=== PATIENT | male | born 1985 | race Hispanic/Latino ===

== ENCOUNTER 2016-07-13 11:03 | Emergency (ER) | payer OTHER ==
[~2016-07-13] VITALS: Ht 175.3 cm; Wt 139.3 kg
[~2016-07-13 11:03] MED LIST: ONFI10 MG PO; PERCOCET 325 MG1 TA2 PO; TEGRETOL 200MG200 MG PO; ZONEGRAN 100MG100 MG PO
--- NOTE | 2016-07-13 11:56 | RADIOLOGY REPORT ---
EXAMINATION: XR HAND, LEFT CLINICAL INFORMATION: Pain. Rule out fracture. COMPARISON: None TECHNIQUE: AP, lateral, and oblique views of the left hand. FINDINGS: There is a comminuted fracture of the first metacarpal with a longitudinal component extending from the lateral cortex of the metacarpal base to the lateral cortex to the distal articular surface. An oblique component is present through the distal shaft. No definite articular surface involvement is identified. Fragments are minimally displaced (2 mm). Surrounding soft tissues are swollen. No additional fractures are identified. Joint spaces appear well-preserved. IMPRESSION: Comminuted, minimally displaced first metacarpal fracture without appreciable articular surface involvement.
[2016-07-13] MEDS ORDERED: HYDROCODON-ACE1 EAC2 PO (12:34)
--- NOTE | 2016-07-13 12:35 | ED HAND/WRIST INJURY COMPLAINT ---
History of Present Illness General Chief Complaint: Hand or Wrist Injury Stated Complaint: L HAND INJURY, ?SWOLLEN Source: patient Exam Limitations: no limitations Vital Signs & Intake/Output Vital Signs & Intake/Output Vital Signs Date Time Temp Pulse Resp B/P Pulse O2 O2 Flow FiO2 Ox Delivery Rate 07/13 1250 98.0 88 20 106/60 98 Room Air 07/13 1108 97.2 88 20 100/61 98 Room Air Allergies Coded Allergies: NO KNOWN ALLERGIES (08/11/11) Reconcile Medications Carbamazapine (Tegretol 200MG Tab) 100 MG TAB.CHEW 600 MG PO BID SEIZURES ( Reported) Clobazam (Onfi) 10 MG TABLET 30 MG PO BID SEIZURES (Reported) Hydrocodone/Acetaminophen (Hydrocodon-Acetaminophen 5-325) 5 MG-325 MG TABLET 1-2 TAB PO Q4-6 PRN PRN pain OXYCODONE HCL/ACETAMINOPHEN (Percocet 5-325 MG Tablet) 325 MG/5 MG TAB 1 TAB PO Q4-6 PRN PRN PAIN Zonisamide (Zonegran 100MG) 100 MG CAPSULE 400 MG PO QPM SEIZURES (Reported) Triage Note: PT STATES HE WAS MOVING A TABLE YESTERDAY AND HIS RIGHT THUMB GOT BENT BACKWARDS. HAND IS VERY SWOLLEN. 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 yes Occurred: yesterday Duration: day(s): (1), constant, continues in ED Timing: recent history Injury Environment: home Severity: moderate, severe Pain/Injury Location: Left: Hand. No Modifying Factors: none HPI: 31-year-old male comes into the emergency room for further evaluation of left hand pain. Patient reports that he was lifting furniture yesterday when he injured his hand. Some swelling and pain since then. Denies any other trauma. Denies injury anywhere else. Pain is located in the first digit on his left hand. (JOE CHADWICK) Past History Travel History Traveled to [place] past 21 day No Medical History Any Pertinent Medical History? see below for history Neurological: seizure Respiratory: asthma Tetanus Vaccine: 08/11/11 Surgical History Surgical History: non-contributory Psychosocial History What is your primary language Chilean Tobacco Use: Current Daily Use Daily Tobacco Use Amount/Type: => 5 Cigarettes daily ETOH Use: occasional use Illicit Drug Use: denies illicit drug use Family History Hx Contributory? No (JOE CHADWICK) Review of Systems Review of Systems Constitutional: Reports: no symptoms. EENTM: Reports: no symptoms. Respiratory: Reports: no symptoms. Cardiovascular: Reports: no symptoms. GI: Reports: no symptoms. Genitourinary: Reports: no symptoms. Musculoskeletal: Reports: see HPI. Skin: Reports: no symptoms. Neurological/Psychological: Reports: no symptoms. Hematologic/Endocrine: Reports: no symptoms. Immunologic/Allergic: Reports: no symptoms. All Other Systems: Reviewed and Negative (JOE CHADWICK) Physical Exam Physical Exam General Appearance: well developed/nourished, mild distress Head: atraumatic Eyes: Bilateral: normal appearance. Ears, Nose, Throat: normal ENT inspection, hearing grossly normal Neck: normal inspection Cardiovascular/Respiratory: no respiratory distress Back: normal inspection Shoulder Left: normal inspection Elbow Left: normal inspection Hand Left: ecchymosis, swelling, tender, 1st finger Hand Right: normal inspection Neurologic/Tendon: normal sensation, normal motor functions, responds to pain Skin: intact, normal color, warm/dry Lymphatic: no anterior cervical norma (JOE CHADWICK) Progress Differential Diagnosis: dislocation, felon, fracture, gout, paronychia, septic arthritis, sprain, tenosynovitis Plan of Care: 07/13/2016 1:46:23 PM Patient clinically looks well. He already sees [facility]. They will contact them for follow-up. Patient put in a thumb spica splint. Diagnostic Imaging: Viewed by Me: Radiology Read. Discussed w/RAD: Radiology Read. Radiology Impression: EXAM TYPE: RAD - XRY-HAND, LEFT EXAMINATION: XR HAND, LEFT CLINICAL INFORMATION: Pain. Rule out fracture. COMPARISON: None TECHNIQUE: AP, lateral, and oblique views of the left hand. FINDINGS: There is a comminuted fracture of the first metacarpal with a longitudinal component extending from the lateral cortex of the metacarpal base to the lateral cortex to the distal articular surface. An oblique component is present through the distal shaft. No definite articular surface involvement is identified. Fragments are minimally displaced (2 mm). Surrounding soft tissues are swollen. No additional fractures are identified. Joint spaces appear well-preserved. IMPRESSION: Comminuted, minimally displaced first metacarpal fracture without appreciable articular surface involvement. DICTATED BY: AMBER SEQUEIRA MD DATE/TIME DICTATED:07/13/161150 COURT MONITOR:HAYDEN (JOE CHADWICK) Departure Departure Disposition: HOME OR SELF CARE Condition: Stable Clinical Impression Primary Impression: Fracture, metacarpal shaft Referrals: THOMAS MCWILLIAMS MD (PCP/Family) Additional Instructions: Take Vicodin for pain. Follow-up with orthopedic doctor. Stay in splint until then. Return if any concerns worsening symptoms. Please go over all results of today's visit with your primary care doctor. Contact your primary care doctor to let them know you were here in the emergency room. There may be nonspecific findings which may not be related to your visit today here in the emergency room but may require further evaluation and chronic monitoring by your primary care doctor. If you had a laceration today the chance of foreign body always remains. You should follow-up with your primary care doctor for recheck in 3-5 days for a wound check. If you had an x-ray done there is a chance that a fracture could have been missed on initial read and you should follow-up with your primary care doctor for repeat x-rays if symptoms persist. If your blood pressure was elevated here in the emergency room please have rechecked by her primary care doctor within the next 48 hours by your primary care doctor. If you were prescribed a narcotic here in the emergency room or any type of controlled substances you're not allowed to drive while taking this medication or operate any type of heavy machinery. Narcotics can make you feel lightheaded dizziness nausea and can cause constipation. 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 Thank you for choosing [facility] emergency room. Please return to the emergency room immediately if you have any other concerns worsening of symptoms. Departure Forms: Customer Survey General Discharge Information Prescriptions: Current Visit Scripts Hydrocodone/Acetaminophen (Hydrocodon-Acetaminophen 5-325) 1-2 TAB PO Q4-6 PRN PRN pain #15 TAB (JOE CHADWICK) PA/ONCOLOGY NAVIGATOR Co-Sign Statement Statement: ED Attending supervision documentation- [] I saw and evaluated the patient. I have also reviewed all the pertinent lab results and diagnostic results. I agree with the findings and the plan of care as documented in the PA's/ONCOLOGY NAVIGATOR's documentation. x I have reviewed the ED Record and agree with the PA's/ONCOLOGY NAVIGATOR's documentation. [] Additions or exceptions (if any) to the PAs/ONCOLOGY NAVIGATOR's note and plan are summarized below: [] (CHESTER TAVAREZ,ROSA) Procedures Splinting Location: Left thumb Manual Alignment Performed: No Hand-Made Type: orthoglass Splint Applied By: splint applied by me Pre-Proc Neuro Vasc Exam: normal Post-Proc Neuro Vasc Exam: normal (JOE CHADWICK)
[2016-07-13 12:50] VITALS: BP 106/60
== END 2016-07-13 12:51 ==
LOC: ERH 11:03
DX: S62.242A Displaced fracture of shaft of first metacarpal bone, left hand, initial encounter for closed fracture (principal); X58.XXXA Exposure to other specified factors, initial encounter; Y93.89 Activity, other specified; Y92.009 Unspecified place in unspecified non-institutional (private) residence as the place of occurrence of the external cause
CPT/HCPCS: 73130-LT

== ENCOUNTER 2017-06-22 12:27 | Emergency (ER) | payer OTHER ==
[~2017-06-22] VITALS: Ht 175.3 cm; Wt 131.1 kg
[~2017-06-22 12:27] MED LIST changes: +HYDROCODON-ACE1 EAC2 PO
--- NOTE | 2017-06-22 13:32 | RADIOLOGY REPORT ---
EXAMINATION: XR FOOT, RIGHT CLINICAL INFORMATION: Pain of right great toe status post injury COMPARISON: None TECHNIQUE: AP, lateral, and oblique views of the right foot. FINDINGS: There is a nondisplaced intra-articular fracture at the medial base of the first digit proximal phalanx. Soft tissue swelling is present. Joint spaces are maintained. Tiny plantar heel spur. IMPRESSION: Nondisplaced intra-articular fracture at the medial base of the first digit proximal phalanx.
--- NOTE | 2017-06-22 16:38 | ED ANKLE/FOOT INJURY COMPLAINT ---
History of Present Illness General Chief Complaint: Foot or Ankle Injury Stated Complaint: R BIG TOE INJURY Source: patient, family Exam Limitations: no limitations Vital Signs & Intake/Output Vital Signs & Intake/Output Vital Signs Date Time Temp Pulse Resp B/P B/P Pulse O2 O2 Flow FiO2 Mean Ox Delivery Rate 06/22 1253 96.7 93 18 113/67 95 Room Air Allergies Coded Allergies: No Known Allergies (02/28/17) Reconcile Medications Carbamazapine (Tegretol 200MG Tab) 100 MG TAB.CHEW 600 MG PO BID SEIZURES ( Reported) Clobazam (Onfi) 10 MG TABLET 30 MG PO BID SEIZURES (Reported) Hydrocodone/Acetaminophen (Hydrocodon-Acetaminophen 5-325) 5 MG-325 MG TABLET 1-2 TAB PO Q4-6 PRN PRN pain Meloxicam (Mobic) 15 MG TABLET 1 TAB PO DAILY PRN pain OXYCODONE HCL/ACETAMINOPHEN (Percocet 5-325 MG Tablet) 325 MG/5 MG TAB 1 TAB PO Q4-6 PRN PRN PAIN Zonisamide (Zonegran 100MG) 100 MG CAPSULE 400 MG PO QPM SEIZURES (Reported) Triage Note: PT TO ER C/C RIGHT GREAT TOE PAIN X 1 DAY S/P STUBBING IT ON SHOWER. PAIN 11/18, DECLINED PAIN INTERVENTION IN TRIAGE Triage Nurses Notes Reviewed? yes Occurred: YESTERDAY Duration: day(s): Timing: recent history Severity: moderate Pain/Injury Location: Right: 1st toe. Method of Injury: stubbed HPI: 32yo male with hx of epilepsy presents to ED complaining of injury to R foot. Patient has seizure last night and believes he kicked the sink in the bathroom. Patient has intermittent seizures in which he ambulates without being aware of his surroundings, he seen a neurologist for the seizures, he will be having brain surgery next month. Patient was with his father who is very active and his healthcare. Father states that the patient did not fall down or hit his head recently. Patient states that he has pain and right great toe when he walks. He has not noticed swelling, bleeding, bruising, numbness, tingling. Past History Travel History Traveled to [place] past 21 day No Medical History Any Pertinent Medical History? see below for history Neurological: seizure EENT: NONE Cardiovascular: NONE Respiratory: asthma Gastrointestinal: NONE Hepatic: NONE Renal: NONE Musculoskeletal: NONE Psychiatric: NONE Endocrine: NONE Blood Disorders: NONE Cancer(s): NONE CAMP BOSS/Reproductive: NONE Tetanus Vaccine: 08/11/11 Surgical History Surgical History: non-contributory Psychosocial History What is your primary language German Tobacco Use: Current Daily Use Daily Tobacco Use Amount/Type: =< 4 Cigarettes daily Family History Hx Contributory? No Review of Systems Review of Systems Constitutional: Reports: no symptoms. EENTM: Reports: no symptoms. Respiratory: Reports: no symptoms. Cardiovascular: Reports: no symptoms. GI: Reports: no symptoms. Genitourinary: Reports: no symptoms. Musculoskeletal: Reports: see HPI. Skin: Reports: no symptoms. Neurological/Psychological: Reports: see HPI. Hematologic/Endocrine: Reports: no symptoms. Immunologic/Allergic: Reports: no symptoms. All Other Systems: Reviewed and Negative Physical Exam Physical Exam General Appearance: well developed/nourished, no apparent distress, alert, awake Head: atraumatic, normal appearance, NONTENDER, NO EVIDENCE OF INJURY Eyes: Bilateral: normal appearance, PERRL, EOMI. Ears, Nose, Throat: hearing grossly normal Neck: normal inspection, supple, full range of motion, no midline tenderness Cardiovascular/Respiratory: normal breath sounds, normal peripheral pulses, regular rate/rhythm, no respiratory distress Back: normal inspection, normal range of motion, no vertebral tenderness Leg/Knee/Thigh Left: normal range of motion, normal inspection Leg/Knee/Thigh Right: normal range of motion, normal inspection Ankle Left: normal inspection, normal range of motion Ankle Right: normal inspection, normal range of motion, NONTENDER Foot Left: normal inspection, normal range of motion Foot Right: normal inspection, normal range of motion, TENDERNESS TO LATERAL ASPECT OF 1ST MTP Neuro/Vascular: normal motor function, normal sensation Tendon: normal tendon function Psychiatric: awake, alert, oriented x 3 Skin: intact, normal color, warm/dry Progress Differential Diagnosis: gout, fracture, sprain, contusion Plan of Care: Patient and father deny head trauma or head strike during his recent seizure- like activity. They're actively seeing neurologist regarding his persistent seizures, seizure-like activity is not abnormal for this patient. Patient has fracture to MTP joint of his right great toe. Patient placed in posterior leg splint with double Ortho-Glass to plantar aspect of foot to allow for slight weightbearing. Patient to follow-up with Dr. Morfin this week. Patient has intact distal pulses, normal sensation in skin color, no significant swelling, no bleeding. The patient and his father agree with the plan of care. The patient was discussed with Dr. Mujica who agrees with this plan. Diagnostic Imaging: Viewed by Me: Radiology Read. Discussed w/RAD: Radiology Read. Radiology Impression: PATIENT: LIZETH SALINAS PRESENT AGE: 32 PATIENT ACCOUNT NO: [id number] : 86 LOCATION: [facility] ORDERING PHYSICIAN: Juan C Motley DO (TBS) SERVICE DATE: 06/22/17 EXAM TYPE: RAD - XRY-FOOT COMPLETE, R EXAMINATION: XR FOOT, RIGHT CLINICAL INFORMATION: Pain of right great toe status post injury COMPARISON: None TECHNIQUE: AP, lateral, and oblique views of the right foot. FINDINGS: There is a nondisplaced intra- articular fracture at the medial base of the first digit proximal phalanx. Soft tissue swelling is present. Joint spaces are maintained. Tiny plantar heel spur. IMPRESSION: Nondisplaced intra-articular fracture at the medial base of the first digit proximal phalanx. DICTATED BY: Everardo Smith MD DATE/TIME DICTATED:06/22/171326 TROUBLE CLERK:HAYDEN DATE/TIME TRANSCRIBED:1326 CONFIDENTIAL, DO NOT COPY WITHOUT APPROPRIATE AUTHORIZATION. < Electronically signed in Other Vendor System> SIGNED BY: Everardo Smith MD 06/22/17 1332 Departure Departure Disposition: HOME OR SELF CARE Condition: Stable Clinical Impression Primary Impression: Fracture of proximal phalanx of toe of right foot Referrals: Fred TAVAREZ,Lakhwinder Tafoya (PCP/Family) Additional Instructions: Follow-up with orthopedic doctor, call the office tomorrow to make an appointment. Wear splint until you follow up with the doctor. After 2-3 days if you are not experiencing significant pain you may bear weight with the splint on. Take meloxicam as prescribed as needed for pain. He may take this medication with Tylenol. Use crutches for walking for the next 2-3 days. Please note that there might be incidental findings in your evaluation that are unrelated to the current emergency department visit. Please notify your primary care doctor about this emergency department visit in order to obtain and review all of the testing performed so that these incidental findings can be monitored as needed. If you had an x-ray performed, please understand that some fractures may not be seen on the initial set of x-rays. If your symptoms persist you might need a repeat set of x-rays to check for such a fracture. If you had a laceration evaluated, please understand that foreign bodies such as glass or wood may not be visible to the naked eye or on plain x-rays. If the wound becomes red, swollen, increasingly more painful or if there is any drainage from the wound, please have it reevaluated by a physician for the possibility of a retained foreign body. If you're unable to follow up as outlined in the discharge instructions please return to the emergency department. Thank you for choosing the [facility] Emergency Department for your care. It was a pleasure to serve you today. Departure Forms: Customer Survey General Discharge Information Prescriptions: Current Visit Scripts Meloxicam (Mobic) 1 TAB PO DAILY PRN pain #15 TAB Procedures Splinting Location: RIGHT FOOT Manual Alignment Performed: No Hand-Made Type: orthoglass Splint: posterior walking Splint Applied By: splint applied by me Pre-Proc Neuro Vasc Exam: normal Post-Proc Neuro Vasc Exam: normal Progress: Patient tolerated splinting well.
[2017-06-22] MEDS ORDERED: MOBIC15 M1 PO (17:25)
[2017-06-22 17:29] VITALS: BP 100/52
== END 2017-06-22 17:29 ==
LOC: ERH 12:27
DX: S92.411A Displaced fracture of proximal phalanx of right great toe, initial encounter for closed fracture (principal); W23.1XXA Caught, crushed, jammed, or pinched between stationary objects, initial encounter; Y92.9 Unspecified place or not applicable; Y93.9 Activity, unspecified
CPT/HCPCS: 73630-RT

== ENCOUNTER 2017-07-22 13:56 | Inpatient (IN) | payer OTHER ==
[~2017-07-22] VITALS: Ht 172.7 cm; Wt 138.6 kg
[~2017-07-22 13:56] MED LIST changes: +MOBIC15 M1 PO; +ONFI10 M1 PO; -ONFI10 MG PO; -ZONEGRAN 100MG100 MG PO; +ZONEGRAN100 M1 PO
--- NOTE | 2017-07-22 15:14 | ED UPPER/LOWER EXTREMITY COMPL ---
History of Present Illness General Chief Complaint: General Adult Stated Complaint: SIB VIC [place] FOR BLOOD CLOT IN R LEG Source: patient, family (father), old records Exam Limitations: no limitations Vital Signs & Intake/Output Vital Signs & Intake/Output Vital Signs Date Time Temp Pulse Resp B/P B/P Pulse O2 O2 Flow FiO2 Mean Ox Delivery Rate 07/22 1846 97.6 83 18 102/62 96 Room Air Room Air 07/22 1748 97.5 81 18 109/70 96 Room Air 07/22 1520 97.9 87 15 117/74 96 Room Air Room Air Allergies Coded Allergies: No Known Allergies (07/22/17) Reconcile Medications Carbamazepine 300 MG CPMP.12HR 2 CAP PO BID SEIZURES (Reported) Carbamazepine 200 MG CPMP.12HR 1 CAP PO QPM SEIZURES (Reported) Cholecalciferol (Vitamin D3) (Vitamin D3) 2,000 UNIT TABLET 1 TAB PO DAILY VITAMIN SUPPORT (Reported) Clobazam (ONFI) 10 MG TABLET 3 TAB PO BID SEIZURES (Reported) Oxycodone HCl 5 MG TABLET 1 TAB PO BIDP PRN PAIN (Reported) Zonisamide (Zonegran) 100 MG CAPSULE 6 CAP PO QPM SEIZURES (Reported) Triage Nurses Notes Reviewed? yes Onset: Abrupt Duration: day(s): (1), constant Timing: recent history Severity: moderate Severity Numbers: 6 Pain/Injury Location: Right: Leg. Method of Injury: unknown No Modifying Factors: none Associated Symptoms: denies HPI: 32-year-old male history of epilepsy status post electrode transplant brain surgery on July 12 presents to the ER. Outpatient ultrasound performed today that showed a right lower extremity DVT. He states that he's had right calf pain for the past few days. No chest pain or shortness of breath. No abdominal pain nausea vomiting fever chills. He denies any left leg pain. He was receiving heparin subcutaneous while in the hospital at [facility] after his surgery he was discharged 2 days ago. (Yvette ALFARO,Nikolas) Past History Travel History Traveled to [place] past 21 day No Medical History Any Pertinent Medical History? 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 No (Nikolas Johnson) Review of Systems Review of Systems Constitutional: Reports: see HPI. Comments Review of systems: See HPI, All other systems negative. Constitutional, no chills no fever, HEENT: no sore throat no congestion Cardiovascular: No chest pain , Skin: no rashes, no change in skin Respiratory: No dyspnea no cough no sputum no hemoptysis GI: No nausea no vomiting, no diarrhea, no bloating/constipation : No dysuria No hematuria, no frequency Muscle skeletal: No joint pain, no back pain, no neck pain, Neurologic: , no headache Heme/endocrine: No bruising no bleeding Immunology: No lymphadenopathy (Nikolas Johnson) Physical Exam Physical Exam General Appearance: well developed/nourished, no apparent distress, alert Comments: Well-developed well-nourished person in no acute distress HEENT: Normal EENT exam; PERRL, EOMI, no nystagmus. HEAD is atraumatic. moist mucous membranes. Neck: Supple, normal range of motion without pain or tenderness Back: Full range of motion Cardiovascular: Regular rate and rhythms no murmurs rub Respiratory: Chest nontender.There were no bony deformities, no asymmetry. No respiratory distress. Patient speaking in full complete sentences. Breath sounds clear to auscultation bilaterally: NO W/R/R Abdomen: Soft, obese, nontender Extremity: (+) r homans sign , no ecchymosis, no edema, Right lower extremity +2 + DP pulse, there is no ecchymosis the extremities warm sensation is within normal limits, No edema, full range of motion of extremities, normal and equal pulses bilaterally, 5 out of 5 strength noted to bilateral upper and lower extremities Neuro: Alert oriented x3, motor sensory normal, There were no obvious focal neurologic abnormalities. Skin: No appreciable rash on exposed skin, skin is warm and dry. Psych: Mood and affect is normal, memory and judgment is normal. (Nikolas Johnson) Progress Differential Diagnosis: cellulitis, compartment syndrome, contusion, dislocation , DVT, pe Plan of Care: Orders Procedure Date/time Status Heart Healthy Diet 07/23 B Active PROTHROMBIN TIME 07/23 599 Active CBC WITHOUT DIFFERENTIAL 07/23 599 Active BASIC ELECTROLYTES PLUS BUN&CR 04/14 0600 Active Regular Diet 07/22 D Complete Weight 07/228 Active Vital Signs 07/22 1917 Active Teach/Educate 07/22 1917 Active Pain Treatment and Response 07/22 1917 Active Nutritional Intake, Monitor 07/22 1917 Active Isolation 07/22 1917 Active Intake & Output 07/22 1917 Active Patient Care Conference 07/22 1917 Active Activity/Ambulation 07/22 1917 Active Pathway - chart 07/22 1715 Active Code Status 07/22 1715 Active Patient Data 07/22 1655 Active ED Holding Orders 07/22 1651 Active Admit to inpatient 07/22 1651 Active Vital Signs 07/22 1651 Active Code Status 07/22 1651 Complete Intake & Output 07/22 1631 Active EKG 07/22 1526 Active PARTIAL THROMBOPLASTIN TIME 07/22 1500 Complete PROTHROMBIN TIME 07/22 1500 Complete COMPREHENSIVE METABOLIC PANEL 07/22 1500 Complete CBC WITHOUT DIFFERENTIAL 07/22 1500 Complete House Staff 07/22 UNK Active Vital Signs 07/22 UNK Complete Seizure Precautions 07/22 UNK Active [place] Coma Scale 07/22 UNK Active Current Medications Sig/Regina Start time Last Medication Dose Stop Time Status Admin Carbamazepine 600 MG DAILY 07/23 0900 AC (Carbatrol Extended Release) Cholecalciferol 2,000 IU DAILY 07/23 0900 AC (Vitamin D) Carbamazepine 800 MG AT BEDTIME 07/22 2100 AC (Carbatrol Extended Release) Oxycodone HCl 5 MG BID PRN 07/22 2100 AC (Roxicodone) Non-Formulary 0 SEE ADMIN CRITERIA 07/22 1830 UNVr Medication (NON FORMULARY) Heparin Sodium/ 25,000 UNIT Q24H 07/22 1545 AC 07/22 Dextrose 1620 (Heparin) Dextrose/Water 500 ML (D5W) Laboratory Tests 07/22/17 1510: Anion Gap 16, Estimated GFR > 60, BUN/Creatinine Ratio 15.0, Glucose 102 H, Calcium 9.3, Total Bilirubin 0.6, AST 23, ALT 42, Alkaline Phosphatase 84, Total Protein 7.7, Albumin 4.5, Globulin 3.2, Albumin/Globulin Ratio 1.4, PT 12.5, INR 1.15, APTT 32, CBC w Diff NO MAN DIFF REQ, RBC 4.97, MCV 94.4 H, MCH 31.8 H, MCHC 33.7, RDW 12.0, MPV 6.7 L, Gran % 65.4, Lymphocytes % 19.0 L, Monocytes % 12.2 H, Eosinophils % 3.2, Basophils % 0.2, Absolute Granulocytes 8.2 H, Absolute Lymphocytes 2.4, Absolute Monocytes 1.5 H, Absolute Eosinophils 0.4, Absolute Basophils 0 Ravindra has no shortness of breath no chest pain no other complaints other than right calf pain. i spoke with dr palacios- cell [phone]- he advised was high risk going into the surgery. His weight and smoking history and he was noncompliant with using compression sleeves after the surgery, he advised however that the patient can be anticoag- he asked however that no bolus of heparin be given he advised and start with slow gtt of heparin prior to bridge to coumadin. case d/w dr motley, call placed to vascular and hospitalisist I discussed with the patient and his father plan of care and my discussion with Dr. Palacios [id number] case dw vascular vascular is advised leg elevation and Bruce wrap to the leg agrees with neurosurgeon recommendations Case discussed with Dr. Katz will admit Diagnostic Imaging: Viewed by Me: Ultrasound. Discussed w/RAD: Ultrasound. Radiology Impression: PATIENT: LIZETH SALINAS PRESENT AGE: 32 PATIENT ACCOUNT NO: [id number] : 86 [facility] ORDERING PHYSICIAN: Harpal Rowan MD SERVICE DATE: 07/22/17 EXAM TYPE: US - US- UNILATERAL VENOUS DOPPLER EXAMINATION: US TRIPLEX LOWER EXTREMITY, RIGHT CLINICAL INFORMATION: Pain in calf on the right side. History of recent brain surgery. COMPARISON: None. TECHNIQUE: Color-flow triplex imaging with spectral analysis and compression Doppler were performed on the right lower extremity. FINDINGS: The study demonstrates noncompressible thrombus in the right calf extending to the right lower femoral vein, consistent with a DVT. The proximal femoral vein has normal flow and compressibility. There are no focal fluid collections. IMPRESSION: 1. The study demonstrates noncompressible deep vein thrombosis in the right calf extending to the right lower femoral vein. 2. There are no focal fluid collections. 3. This critical result was discussed with Dr Diaz by telephone on 07/22/2017 at 1:30 PM and it was ascertained that the content and urgency of the report was understood at the time of direct communication. DICTATED BY: Clint Rosario MD DATE/TIME DICTATED:07/22/171332 CRUISE COORDINATOR:HAYDEN DATE/TIME TRANSCRIBED:07/22/171332 CONFIDENTIAL, DO NOT COPY WITHOUT APPROPRIATE AUTHORIZATION. <Electronically signed in Other Vendor System> SIGNED BY: Clint Rosario MD 07/22/17 1423 Initial ED EKG: normal intervals, normal p-waves, normal QRS complex, normal sinus rhythm (Nikolas Johnson) Departure Departure Time of Disposition: 1541 Disposition: STILL A PATIENT Condition: Stable Clinical Impression Primary Impression: DVT (deep venous thrombosis) Referrals: Lakhwinder Ibarra MD (PCP/Family) Departure Forms: Customer Survey General Discharge Information Admission Note Spoke With: Agus Katz MD Documentation of Exam: Documentation of any treatments & extenuating circumstances including Concerns Regarding Discharge (functional status, medication knowledge or non-compliance, living conditions, etc.) that warrant an admission rather than observation: Neuro checks IV anticoagulation vascular consult trend labs premature discharge would BE medically harmful (Nikolas Johnson) PA/COUNSELING CASE MANAGER Co-Sign Statement Statement: ED Attending supervision documentation- [X] I saw and evaluated the patient. I have also reviewed all the pertinent lab results and diagnostic results. I agree with the findings and the plan of care as documented in the PA's/COUNSELING CASE MANAGER's documentation. [] I have reviewed the ED Record and agree with the PA's/COUNSELING CASE MANAGER's documentation. [] Additions or exceptions (if any) to the PAs/COUNSELING CASE MANAGER's note and plan are summarized below: [] I saw and evaluated the patient. He has swelling to the right lower extremity (Juan C Motley DO) I saw and evaluated the patient. He has swelling to the right lower extremity (Juan C Motley DO)
[2017-07-22 15:26] LABS: ABSOLUTE BASOPHIL COUNT 0 /CUMM (0.0-0.2); ABSOLUTE EOSINOPHIL COUNT 0.4 /CUMM (0.0-0.7); ABSOLUTE GRANULOCYTE CT 8.2 /CUMM (1.4-6.5); ABSOLUTE LYMPH COUNT 2.4 /CUMM (1.2-3.4); ABSOLUTE MONOCYTE COUNT 1.5 /CUMM (0.10-0.60); BASOPHIL % 0.2 % (0.0-2.0); EOSINOPHIL % 3.2 % (0-5); GRANULOCYTE % 65.4 % (42.2-75.2); HEMATOCRIT 46.9 % (42-52); MEAN CORPUSCULAR HGB 31.8 PG (27.0-31.0); MEAN CORPUSCULAR HGB CONC 33.7 G/DL (33.0-37.0); MEAN CORPUSCULAR VOLUME 94.4 FL (80.0-94.0); MEAN PLATELET VOLUME 6.7 FL (7.4-10.4); PLATELET COUNT 238 /CUMM (130-400); RED BLOOD CELL CT 4.97 /CUMM (4.70-6.10); WHITE BLOOD CELL COUNT 12.6 /CUMM (4.8-10.8)
[2017-07-22 15:27] LABS: PT 12.5 SEC (9.4-12.5); PTT 32 SEC (25-37)
[2017-07-22] MEDS ORDERED: CARBAMAZEPINE300 M1 PO (15:41)
[2017-07-22] MEDS ORDERED: VITAMIN D32000 UNI1 PO (15:42)
[2017-07-22] MEDS ORDERED: CARBAMAZEPINE200 M6 PO (15:43)
[2017-07-22] MEDS ORDERED: OXYCODONE HCL5 M1 PO (15:43)
--- NOTE | 2017-07-22 16:30 | History & Physical ---
Vidal Arthur MD,[facility] 07/22/17 1629: General Information and HPI MD Statement: I have seen and personally examined LIZETH SALINAS and documented this H&P. The patient is a 32 year old M who presented with a patient stated chief complaint of [BLOOD CLOT IN LEG]. Source of Information: patient, family History of Present Illness: Patient is 32 y M with PMH of seizure s/p electrode transplant brain surgery was sent to ED for evaluation and treatment of blood clots in leg. Patients father was present at the bedside helping in history taking. Patient noted that he had brain surgery on at [facility] (by Dr Palacios). He was discharged on July 20 from hospital and reported to be in bed most of the times. He noted to have pain in the right leg yesterday. He visited his PCP this morning was referred for an outpatient ultrasound. He was told he had blood clots in leg and he came to ED. He reported no chest pain, SOB, cough or palpitation. patient lives with his father, is prety independant in daily life activities. Dr Palacios was contacted with ED, recommended no bolus of heparin, but we can administer heparin drip as bridging for wafarin. Allergies/Medications Allergies: Coded Allergies: No Known Allergies (07/22/17) Home Med list Carbamazepine 300 MG CPMP.12HR 2 CAP PO BID SEIZURES (Reported) Carbamazepine 200 MG CPMP.12HR 1 CAP PO QPM SEIZURES (Reported) Cholecalciferol (Vitamin D3) (Vitamin D3) 2,000 UNIT TABLET 1 TAB PO DAILY VITAMIN SUPPORT (Reported) Clobazam (ONFI) 10 MG TABLET 3 TAB PO BID SEIZURES (Reported) Oxycodone HCl 5 MG TABLET 1 TAB PO BIDP PRN PAIN (Reported) Zonisamide (Zonegran) 100 MG CAPSULE 6 CAP PO QPM SEIZURES (Reported) Past History Travel History Traveled to [place] past 21 day No Medical History Neurological: seizure EENT: NONE Cardiovascular: NONE Respiratory: asthma Gastrointestinal: NONE Hepatic: NONE Renal: NONE Musculoskeletal: NONE Psychiatric: NONE Endocrine: NONE Blood Disorders: NONE Cancer(s): 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 Exam & Diagnostic Data Last 24 Hrs of Vital Signs/I&O Vital Signs Date Time Temp Pulse Resp B/P B/P Pulse O2 O2 Flow FiO2 Mean Ox Delivery Rate 07/22 1846 97.6 83 18 102/62 96 Room Air Room Air 07/22 1748 97.5 81 18 109/70 96 Room Air 07/22 1520 97.9 87 15 117/74 96 Room Air Room Air Intake & Output 07/22 1600 07/22 0800 07/22 0000 Intake Total Output Total Balance Patient 293 lb Weight Weight Reported by Patient Measurement Method Physical Exam General Appearance Alert, Oriented X3, Cooperative, No Acute Distress Skin No Significant Lesion Skin Temp/Moisture Exam: Warm/Dry Sepsis Skin Exam (color): Normal for Ethnicity HEENT Atraumatic, EOMI, Mucous Membr. moist/pink Neck Supple, No JVD Cardiovascular Normal S1, Normal S2 Lungs Clear to Auscultation, Normal Air Movement Abdomen Soft, No Tenderness Extremities Right thigh swelling and warmness Last 24 Hrs of Labs/Fran: Laboratory Tests 07/22/17 1510: Anion Gap 16, Estimated GFR > 60, BUN/Creatinine Ratio 15.0, Glucose 102 H, Calcium 9.3, Total Bilirubin 0.6, AST 23, ALT 42, Alkaline Phosphatase 84, Total Protein 7.7, Albumin 4.5, Globulin 3.2, Albumin/Globulin Ratio 1.4, PT 12.5, INR 1.15, APTT 32, CBC w Diff NO MAN DIFF REQ, RBC 4.97, MCV 94.4 H, MCH 31.8 H, MCHC 33.7, RDW 12.0, MPV 6.7 L, Gran % 65.4, Lymphocytes % 19.0 L, Monocytes % 12.2 H, Eosinophils % 3.2, Basophils % 0.2, Absolute Granulocytes 8.2 H, Absolute Lymphocytes 2.4, Absolute Monocytes 1.5 H, Absolute Eosinophils 0.4, Absolute Basophils 0 Assessment/Plan Assessment: 32 y M presented for evaluation of blood clots in the leg PMH: seizure s/p electrode transplant brain surgery VS, Ph Ex at admission: BP 117/74, other insignificant Labs at admission: insignificant Imagings at admission: Doppler LE: 1. The study demonstrates noncompressible deep vein thrombosis in the right calf extending to the right lower femoral vein. 2. There are no focal fluid collections. 3. This critical result was discussed with Dr Diaz by telephone on 07/22/2017 at 1:30 PM and it was ascertained that the content and urgency of the report was understood at the time of direct communication. Patient was admitted to floor for management of following conditions: DVT: related to imobility - admit patient to floor - monitor VS - continue heparin drip without bolus - start warfarin considering possibility of need for transfer - vascular surgery consult placed history of Seizures: - continue home medication - note that warfarin metabolism could be affected with carb FC Regular diet As Ranked By This Provider Problem List: 1. Seizure 2. DVT (deep venous thrombosis) Core Measures/Misc (12/26) Acute Coronary Syndrome ACS Diagnosis: No Congestive Heart Failure Congestive Heart Failure Diagnosis No Cerebrovascular Accident CVA/TIA Diagnosis: No VTE (View Protocol) VTE Risk Factors Immobility No Mechanical VTE Prophylaxis d/t N/A MechProphylax Ordered No VTE Pharm Prophylaxis d/t NA PharmProphylax ordered (Current DVT being treated) Sepsis (View protocol) Sepsis Present: No Rylee Gonzalez 07/22/17 1645: Resident Review Statement Resident Statement: examined this patient, discussed with international travel consultant, agreed with international travel consultant, discussed with family, reviewed EMR data (avail), discussed with nursing , discussed with case mgmt, reviewed images, amended to note Other Findings: 32-year-old male with a history of epilepsy status post electrical transplant brain surgery on July 12 presented to the ER for an outpatient ultrasound showed right lower extremity DVT. Apparently patient has had right calf pain for the past few days. States that he went for brain surgery on July [address] [facility] [address] Palacios, where he had electrodes put in [facility] 2nd part of surgery, hasd sutres placed. Remmoved the wires that was on July 19, and released on 20 of July. PT asked him to walk, had no pain in leg. Patient was in bed the whole time and would allow him out of bed only when he would use the urinal. Was given shots of heparin in the belly each night. Left hsopoital on felt no pain in leg. no swelling, dn no erythema. Had spent 7 days at [facility] lying in lying. Had been taking pain killers for brain surgery, when he woke up yesteday morning, when he flet pain in R leg. Woke up again this AM, as he went to his PCP Dr. Rowan, sent him to [facility] and got an US, which showed the clot. No SOB, CP, Of note patient has epilepsy for 24 years, but follwos up with at [facility]. ER spoke with dr palacios- cell [phone]- who advised was high risk going into the surgery. His weight and smoking history and he was noncompliant with using compression sleeves after the surgery, he advised however that the patient can be anticoag- he asked however that no bolus of heparin be given he advised and start with slow gtt of heparin prior to bridge to coumadin. Vitals at the time of admission blood pressure 117/74, respiratory rate of 15, pulse 87, afebrile saturating 96% on room air. On physical exam, he is obese, alert and oriented 3 and in no acute distress sitting comfortably in bed. HEENT revealed PERRLA, moist mucous membranes. Cardio vascular exam unremarkable with normal S1, S2, no murmurs rubs or gallops appreciated. Respiratory exam is benign without chest clear to auscultation bilaterally. Abdominal exam is benign abdomen soft, nontender, nondistended normal bowel sounds in all 4 quadrants. Examination of the lower extremities revealed right lower leg slightly more warmer compared to the left and it is little bit swollen. Labs pertinent for leukocytosis with a white blood cell count 12,600, H&H of 15.8/46.9 and an MCV of 94.4 with a platelet count of 2 35,000 serum chemistries pertinent for sodium of 139, potassium 4.2, bicarb 24, anion gap of 16, BUN 12 with a creatinine of 0.8. LFTs unremarkable with an AST/ALT of 23/42, alk phos of 84. INR 1.15. Venous Doppler reveale noncompressible deep vein thrombosis in the right calf extending to the right lower femoral vein. There are no focal fluid collections. In the ER patient received Tylenol 650 mg p.o. 1 and was started on a heparin drip for anticoagulation without bolus as per the ER physician's discussion with the patient's neurosurgeon at [facility]. Assessment and plan Admit patient to general medicine given that he is hemodynamically stable. DVT Most likely provoked in the setting of being immobile and being noncompliant with compression stockings at the hospital Patient was already started on heparin without bolus as per recommendations given by the neurosurgeon. Will dose warfarin 5 mg p.o. Follow-up INR in a.m. and dose Coumadin tomorrow Vascular surgery consult has been placed. Follow-up recommendations Will place on neuro checks every 4 hours to ensure he does not bleed into his brain given recent brain surgery History of seizures Continue on his home medications including 800 mg p.o. bedtime of carbotaxol, 600 mg p.o. daily, ONFI 30 mg twice daily, Zonegran 600 mg p.o. at bedtime Patient's father was advised to bring the sonogram and as he can only take the brand name DVT prophylaxis On IV heparin Diet Regular CODE STATUS Full code Agus Katz 07/22/17 1704: Attending MD Review Statement Attending Statement Attending MD Statement: examined this patient, discuss w/resident/PA/POWER PLANT ASSISTANT, agreed w/resident/PA/POWER PLANT ASSISTANT, discussed with family, reviewed EMR data (avail), discussed with nursing, discussed with case mgmt, reviewed images, amended to note Attending Assessment/Plan: 32 o/m with pmh of seizure disorder was recently discharged from [facility] after his neurosurgery Dr Palacios did procedure of elcetrode replacement for intractable epilepsy as per patient/family. Patient came to hospital after he c/o right calf pain and found to have extensive DVT. Patient being admitted to inpatient medical services for new provoked DVT. Neurosurgery was consulted in ER Dr Palacios and he would recommend to start iv heparin and coumadin as reversible anticaogulation agents to which family is agreeable. Patient will put in frequet neurochecks, monitor mental status, monitor INR and consult vascular surgery. Gi /dvt prophyalxis full code.
[2017-07-22 19:15] VITALS: BP 124/64
[2017-07-22 21:29] VITALS: BP 124/68
[2017-07-22 23:59] LABS: PTT 32 SEC (25-37)
[2017-07-23 06:59] VITALS: BP 112/52
[2017-07-23 08:15] LABS: PT 11.7 SEC (9.4-12.5)
--- NOTE | 2017-07-23 08:27 | PN- Housestaff ---
See Addendum Subjective Follow-up For: DVT history of seizure Subjective: Patient visited today, was lying in bed comfortably in no acute distress, was alert and oriented. seizure percautions in place. No fever or chills, no shortness of breathing, no chest pain, no other events. Planned to dose warfarin. Vascular surgery consult placed, pending. Review of Systems Constitutional: Reports: see HPI. Objective Last 24 Hrs of Vital Signs/I&O Vital Signs Date Time Temp Pulse Resp B/P B/P Pulse O2 O2 Flow FiO2 Mean Ox Delivery Rate 07/23 0659 98.2 90 20 112/52 94 07/22 2129 98.0 83 18 124/68 95 Room Air 07/22 1915 97.9 86 18 124/64 96 Room Air 07/22 1846 97.6 83 18 102/62 96 Room Air Room Air 07/22 1748 97.5 81 18 109/70 96 Room Air 07/22 1520 97.9 87 15 117/74 96 Room Air Room Air Intake & Output 07/23 1600 07/23 0800 07/23 0000 Intake Total 240 Output Total 225 200 Balance 15 -200 Intake, Oral 240 Output, Urine 225 200 Patient 293 lb Weight Physical Exam General Appearance: Alert, Oriented X3, Cooperative, No Acute Distress Skin: No Significant Lesion Skin Temp/Moisture Exam: Warm/Dry Sepsis Skin Exam (color): Normal for Ethnicity Cardiovascular: Regular Rate, Normal S1, Normal S2 Lungs: Clear to Auscultation, Normal Air Movement Abdomen: Soft, No Tenderness Neurological: Normal Speech Extremities: Right thigh MAXINE in place, swelling and erythema Current Medications: Current Medications Sig/Regina Start time Last Medication Dose Route Stop Time Status Admin Acetaminophen 650 MG ONCE ONE 07/22 1645 DC 07/22 PO 07/22 1646 1657 Acetaminophen 0 .STK-MED ONE 07/22 1636 DC PO Carbamazepine 600 MG DAILY 07/23 09 AC 07/23 PO 0833 Carbamazepine 200 MG AT BEDTIME 07/22 2100 DC PO Carbamazepine 600 MG BID 07/22 2100 DC PO Carbamazepine 800 MG AT BEDTIME 07/22 2100 AC 07/23 PO 0003 Cholecalciferol 2,000 IU DAILY 07/23 0900 AC 07/23 PO 0834 Heparin Sodium 10,000 UNIT .STK-MED ONE 07/23 0055 DC (Porcine) IV 07/23 0056 Heparin Sodium 9,967 UNIT BOLUS ONE 07/23 0040 DC 07/23 (Porcine) IV 07/23 004 0057 Heparin Sodium/ 25,000 UNIT Q24H 07/22 1545 AC 07/22 Dextrose IV 1620 Dextrose/Water 500 ML Oxycodone HCl 5 MG BID PRN 07/22 2100 AC 07/23 PO 0518 Warfarin Sodium 5 MG COUMADIN 1700 ONE 07/23 1700 AC PO 07/23 1701 Warfarin Sodium 5 MG COUMADIN 1700 ONE 07/22 1700 DC 07/22 PO 07/22 1701 2255 Zonisamide 600 MG 2100 07/22 2300 AC 07/23 PO 0007 Last 24 Hrs of Lab/Fran Results Last 24 Hrs of Labs/Mics: Laboratory Tests 07/23/17 0656: Anion Gap 12, Estimated GFR > 60, BUN/Creatinine Ratio 13.8, PT 11.7, INR 1.07, APTT 77 H, CBC w Diff NO MAN DIFF REQ, RBC 4.36 L, MCV 94.2 H, MCH 31.8 H, MCHC 33.8, RDW 12.1, MPV 7.5, Gran % 56.7, Lymphocytes % 26.8, Monocytes % 12.7 H, Eosinophils % 3.3, Basophils % 0.5, Absolute Granulocytes 6.3, Absolute Lymphocytes 3.0, Absolute Monocytes 1.4 H, Absolute Eosinophils 0.4, Absolute Basophils 0.1 07/23/17 0639: APTT Cancelled 07/22/17 2315: APTT 32 07/22/17 1510: Anion Gap 16, Estimated GFR > 60, BUN/Creatinine Ratio 15.0, Glucose 102 H, Calcium 9.3, Total Bilirubin 0.6, AST 23, ALT 42, Alkaline Phosphatase 84, Total Protein 7.7, Albumin 4.5, Globulin 3.2, Albumin/Globulin Ratio 1.4, PT 12.5, INR 1.15, APTT 32, CBC w Diff NO MAN DIFF REQ, RBC 4.97, MCV 94.4 H, MCH 31.8 H, MCHC 33.7, RDW 12.0, MPV 6.7 L, Gran % 65.4, Lymphocytes % 19.0 L, Monocytes % 12.2 H, Eosinophils % 3.2, Basophils % 0.2, Absolute Granulocytes 8.2 H, Absolute Lymphocytes 2.4, Absolute Monocytes 1.5 H, Absolute Eosinophils 0.4, Absolute Basophils 0 Assessment/Plan Assessment: 32 y M presented for evaluation of blood clots in the leg PMH: seizure s/p electrode transplant brain surgery VS, Ph Ex at admission: BP 117/74, other insignificant Labs at admission: insignificant Imagings at admission: Doppler LE: 1. The study demonstrates noncompressible deep vein thrombosis in the right calf extending to the right lower femoral vein. 2. There are no focal fluid collections. 3. This critical result was discussed with Dr Diaz by telephone on 07/22/2017 at 1:30 PM and it was ascertained that the content and urgency of the report was understood at the time of direct communication. Patient was admitted to floor for management of following conditions: DVT: related to imobility INR today 04/17, despite no need to check INR till day 3 considering comorbidities we will check INR tomorrow. - admit patient to floor - monitor VS - continue heparin drip without bolus - continue warfarin considering possibility of need for transfer - vascular surgery consult placed history of Seizures: - continue home medication - note that warfarin metabolism could be affected with carb FC Regular diet Problem List: 1. Seizure 2. DVT (deep venous thrombosis) Pain Ratin Pain Location: none Pain Goal: Pain 4 or less Pain Plan: continue current plan Tomorrow's Labs & Rationales: CBC INR
[2017-07-23 08:31] LABS: ABSOLUTE EOSINOPHIL COUNT 0.4 /CUMM (0.0-0.7); ABSOLUTE MONOCYTE COUNT 1.4 /CUMM (0.10-0.60); MEAN PLATELET VOLUME 7.5 FL (7.4-10.4); RED BLOOD CELL CT 4.36 /CUMM (4.70-6.10)
[2017-07-23 08:46] LABS: ABSOLUTE BASOPHIL COUNT 0.1 /CUMM (0.0-0.2); ABSOLUTE GRANULOCYTE CT 6.3 /CUMM (1.4-6.5); BASOPHIL % 0.5 % (0.0-2.0); EOSINOPHIL % 3.3 % (0-5); GRANULOCYTE % 56.7 % (42.2-75.2); MEAN CORPUSCULAR HGB 31.8 PG (27.0-31.0); MEAN CORPUSCULAR HGB CONC 33.8 G/DL (33.0-37.0); MEAN CORPUSCULAR VOLUME 94.2 FL (80.0-94.0); PLATELET COUNT 224 /CUMM (130-400); RBC DISTRIBUTION WIDTH 12.1 % (11.5-14.5); WHITE BLOOD CELL COUNT 11.1 /CUMM (4.8-10.8)
[2017-07-23 08:52] LABS: HEMATOCRIT 41.1 % (42-52)
[2017-07-23 09:20] LABS: PTT 77 SEC (25-37)
--- NOTE | 2017-07-23 12:24 | Cons- Vascular Surgery ---
General Information and HPI Consulting Request Date of Consult: 07/23/17 Requested By: Agus Katz MD Reason for Consult: Right femoral DVT Source of Information: patient, family Exam Limitations: no limitations History of Present Illness: 32 y/o m w/ hx of sz disorder. underewent recent neurosurgery procedure to identify focus of seziures. This was done [place] over a week ago. during this time pt was relatively immobile. Upon discharge home he developed right calf pain and swelling. Was found to have DVT from femoral vein down to calf. Denies sob/cp. no history of clots before. no family history of clots. denies other signfiicant medical problems. smokes 3 cigarettes/day. Allergies/Medications Allergies: Coded Allergies: No Known Allergies (07/22/17) Home Med List: Carbamazepine 300 MG CPMP.12HR 2 CAP PO BID SEIZURES (Reported) Carbamazepine 200 MG CPMP.12HR 1 CAP PO QPM SEIZURES (Reported) Cholecalciferol (Vitamin D3) (Vitamin D3) 2,000 UNIT TABLET 1 TAB PO DAILY VITAMIN SUPPORT (Reported) Clobazam (ONFI) 10 MG TABLET 3 TAB PO BID SEIZURES (Reported) Oxycodone HCl 5 MG TABLET 1 TAB PO BIDP PRN PAIN (Reported) Zonisamide (Zonegran) 100 MG CAPSULE 6 CAP PO QPM SEIZURES (Reported) Past History Medical History Blood Transfusion Hx: No Neurological: seizure EENT: NONE Cardiovascular: NONE Respiratory: asthma Gastrointestinal: NONE Hepatic: NONE Renal: NONE Musculoskeletal: NONE Psychiatric: NONE Endocrine: NONE Blood Disorders: NONE Cancer(s): NONE CANAL SUPERINTENDENT/Reproductive: NONE Surgical History Pertinent Surgical History: BRAIN SURGERY Psychosocial History Where Do You Live? Home Services at Home: None Smoking Status: Current Some Day Smoker Review of Systems Review of Systems Constitutional: Reports: no symptoms. EENTM: Reports: no symptoms. Cardiovascular: Reports: no symptoms. Respiratory: Reports: no symptoms. GI: Reports: no symptoms. Genitourinary: Reports: no symptoms. Exam & Diagnostic Data Vital Signs and I&O Vital Signs Date Time Temp Pulse Resp B/P B/P Pulse O2 O2 Flow FiO2 Mean Ox Delivery Rate 07/23 0659 98.2 90 20 112/52 94 07/229 98.0 83 18 124/68 95 Room Air 07/22 1915 97.9 86 18 124/64 96 Room Air 07/22 1846 97.6 83 18 102/62 96 Room Air Room Air 07/22 1748 97.5 81 18 109/70 96 Room Air 07/22 1520 97.9 87 15 117/74 96 Room Air Room Air Intake & Output 07/23 1600 07/23 0800 07/23 0000 07/22 1600 07/22 0800 07/22 0000 Intake Total 240 Output Total 225 200 Balance 15 -200 Intake, Oral 240 Output, Urine 225 200 Patient 293 lb 293 lb Weight Weight Reported by Patient Measurement Method reviewed Physical Exam: feet wwp. right leg swollen compared to left up to knee. Last 24 Hours of Labs: Laboratory Tests 07/23 07/23 07/22 0656 0669 2315 Chemistry Sodium (137 - 145 mmol/L) 139 Potassium (3.5 - 5.1 mmol/L) 3.8 Chloride (98 - 107 mmol/L) 104 Carbon Dioxide (22 - 30 mmol/L) 23 Anion Gap (5 - 16) 12 BUN (9 - 20 mg/dL) 11 Creatinine (0.7 - 1.2 mg/dL) 0.8 Estimated GFR (>60 ml/min) > 60 BUN/Creatinine Ratio (7 - 25 %) 13.8 Coagulation PT (9.4 - 12.5 SEC) 11.7 INR (0.90 - 1.17) 1.07 APTT (25 - 37 SEC) 77 H Cancelled 32 Hematology CBC w Diff NO MAN DIFF REQ WBC (4.8 - 10.8 /CUMM) 11.1 H RBC (4.70 - 6.10 /CUMM) 4.36 L Hgb (14.0 - 18.0 G/DL) 13.9 L Hct (42 - 52 %) 41.1 L MCV (80.0 - 94.0 FL) 94.2 H MCH (27.0 - 31.0 PG) 31.8 H MCHC (33.0 - 37.0 G/DL) 33.8 RDW (11.5 - 14.5 %) 12.1 Plt Count (130 - 400 /CUMM) 224 MPV (7.4 - 10.4 FL) 7.5 Gran % (42.2 - 75.2 %) 56.7 Lymphocytes % (20.5 - 51.1 %) 26.8 Monocytes % (1.7 - 9.3 %) 12.7 H Eosinophils % (0 - 5 %) 3.3 Basophils % (0.0 - 2.0 %) 0.5 Absolute Granulocytes (1.4 - 6.5 /CUMM) 6.3 Absolute Lymphocytes (1.2 - 3.4 /CUMM) 3.0 Absolute Monocytes (0.10 - 0.60 /CUMM) 1.4 H Absolute Eosinophils (0.0 - 0.7 /CUMM) 0.4 Absolute Basophils (0.0 - 0.2 /CUMM) 0.1 07/22 1510 Chemistry Sodium (137 - 145 mmol/L) 139 Potassium (3.5 - 5.1 mmol/L) 4.2 Chloride (98 - 107 mmol/L) 99 Carbon Dioxide (22 - 30 mmol/L) 24 Anion Gap (5 - 16) 16 BUN (9 - 20 mg/dL) 12 Creatinine (0.7 - 1.2 mg/dL) 0.8 Estimated GFR (>60 ml/min) > 60 BUN/Creatinine Ratio (7 - 25 %) 15.0 Glucose (65 - 99 mg/dL) 102 H Calcium (8.4 - 10.2 mg/dL) 9.3 Total Bilirubin (0.2 - 1.3 mg/dL) 0.6 AST (17 - 59 U/L) 23 ALT (21 - 72 U/L) 42 Alkaline Phosphatase (< 127 U/L) 84 Total Protein (6.3 - 8.2 g/dL) 7.7 Albumin (3.5 - 5.0 g/dL) 4.5 Globulin (1.9 - 4.2 gm/dL) 3.2 Albumin/Globulin Ratio (1.1 - 2.2 %) 1.4 Coagulation PT (9.4 - 12.5 SEC) 12.5 INR (0.90 - 1.17) 1.15 APTT (25 - 37 SEC) 32 Hematology CBC w Diff NO MAN DIFF REQ WBC (4.8 - 10.8 /CUMM) 12.6 H RBC (4.70 - 6.10 /CUMM) 4.97 Hgb (14.0 - 18.0 G/DL) 15.8 Hct (42 - 52 %) 46.9 MCV (80.0 - 94.0 FL) 94.4 H MCH (27.0 - 31.0 PG) 31.8 H MCHC (33.0 - 37.0 G/DL) 33.7 RDW (11.5 - 14.5 %) 12.0 Plt Count (130 - 400 /CUMM) 238 MPV (7.4 - 10.4 FL) 6.7 L Gran % (42.2 - 75.2 %) 65.4 Lymphocytes % (20.5 - 51.1 %) 19.0 L Monocytes % (1.7 - 9.3 %) 12.2 H Eosinophils % (0 - 5 %) 3.2 Basophils % (0.0 - 2.0 %) 0.2 Absolute Granulocytes (1.4 - 6.5 /CUMM) 8.2 H Absolute Lymphocytes (1.2 - 3.4 /CUMM) 2.4 Absolute Monocytes (0.10 - 0.60 /CUMM) 1.5 H Absolute Eosinophils (0.0 - 0.7 /CUMM) 0.4 Absolute Basophils (0.0 - 0.2 /CUMM) 0 Assessment/Plan Assessment/Plan 32 y/o m w/ hx of sz disorder presents with right femoral vein DVT in setting of recent surgery and immobility. -continue therapuetic AC if no contraindication per nsgy -If it is felt pt to great of a risk for ac because of fall risk or recent surgery then would place IVC filter -leg elevation and compression. should have compresion stockings for discharge. -pt should see me upon discharge for fu us. Would continue AC for 6 months. -as this is first episode and it is a provoked DVT wouldnt need hypercoaguability work up. please call with questions. Consult Acknowledgment - Thank you for your consult request.
[2017-07-23 15:10] VITALS: BP 122/64
[2017-07-23 20:59] VITALS: BP 132/68
[2017-07-24 00:31] LABS: PTT 55 SEC (25-37)
[2017-07-24 06:00] VITALS: BP 114/54
[2017-07-24 08:34] LABS: ABSOLUTE BASOPHIL COUNT 0 /CUMM (0.0-0.2); ABSOLUTE EOSINOPHIL COUNT 0.4 /CUMM (0.0-0.7); ABSOLUTE GRANULOCYTE CT 7.5 /CUMM (1.4-6.5); ABSOLUTE LYMPH COUNT 2.5 /CUMM (1.2-3.4); ABSOLUTE MONOCYTE COUNT 1.4 /CUMM (0.10-0.60); BASOPHIL % 0.4 % (0.0-2.0); EOSINOPHIL % 3.3 % (0-5); GRANULOCYTE % 63.3 % (42.2-75.2); HEMATOCRIT 42.8 % (42-52); MEAN CORPUSCULAR HGB 31.4 PG (27.0-31.0); MEAN CORPUSCULAR HGB CONC 33.3 G/DL (33.0-37.0); MEAN CORPUSCULAR VOLUME 94.3 FL (80.0-94.0); MEAN PLATELET VOLUME 7.5 FL (7.4-10.4); PLATELET COUNT 242 /CUMM (130-400); RBC DISTRIBUTION WIDTH 12.4 % (11.5-14.5); RED BLOOD CELL CT 4.55 /CUMM (4.70-6.10); WHITE BLOOD CELL COUNT 11.8 /CUMM (4.8-10.8)
[2017-07-24 08:39] LABS: PT 21.8 SEC (9.4-12.5)
[2017-07-24 08:56] LABS: PTT > 120 SEC (25-37)
--- NOTE | 2017-07-24 09:02 | PN- Housestaff ---
Haseeb TAVAREZ,[facility] 07/24/17 0853: Subjective Follow-up For: DVT Subjective: Patient seen and examined. Resting comfortably. Having breakfast. Offered no complaints. He wanted to know if on smoking can increase the risk of on. explained that it is quite possible, he should try to quit. Extensively counseled on smoking cessation. Patient ended the conversation by saying that he only smokes 2-3 cigarettes per day and he will try to get back. Patient was offered nicotine patch which she declined. No overnight acute events. Afebrile no shortness of breath chest pain or palpitations. Review of Systems Constitutional: Reports: see HPI. Objective Last 24 Hrs of Vital Signs/I&O Vital Signs Date Time Temp Pulse Resp B/P B/P Pulse O2 O2 Flow FiO2 Mean Ox Delivery Rate 07/24 06 98.6 76 20 114/54 94 Room Air 07/23 2059 98.8 88 20 132/68 98 Room Air 07/23 1510 98.7 96 20 122/64 95 Room Air Intake & Output 07/24 1600 07/24 0800 07/24 0000 Intake Total 805 2262 Output Total 800 Balance 5 2262 Intake, IV 325 262 Intake, Oral 480 2000 Number 0 Bowel Movements Output, Urine 800 Physical Exam General Appearance: Alert, Oriented X3, Cooperative Cardiovascular: Normal S1, Normal S2 Lungs: Clear to Auscultation, Normal Air Movement Neurological: Normal Speech Current Medications: Current Medications Sig/Regina Start time Last Medication Dose Route Stop Time Status Admin Acetaminophen 650 MG Q4P PRN 07/23 2300 AC 07/23 PO 2254 Carbamazepine 600 MG DAILY 07/23 0900 AC 07/23 PO 0833 Carbamazepine 800 MG AT BEDTIME 07/22 2100 AC 07/23 PO 2017 Cholecalciferol 2,000 IU DAILY 07/23 0900 AC 07/23 PO 0834 Heparin Sodium 5,316 UNIT BOLUS ONE 07/24 0110 DC 07/24 (Porcine) IV 07/24 0111 0131 Heparin Sodium/ 25,000 UNIT .STK-MED ONE 07/23 0933 DC Dextrose IV 07/23 0934 Heparin Sodium/ 25,000 UNIT Q24H 07/22 1545 AC 07/23 Dextrose IV 2247 Dextrose/Water 500 ML Oxycodone HCl 5 MG BID PRN 07/22 2100 AC 07/23 PO 0518 Warfarin Sodium 5 MG COUMADIN 1700 ONE 07/23 1700 DC 07/23 PO 07/23 1701 1717 Zonisamide 600 MG 2100 07/220 AC 07/23 PO 2019 Last 24 Hrs of Lab/Fran Results Last 24 Hrs of Labs/Mics: Laboratory Tests 07/24/17 0743: APTT Pending 07/24/17 0725: PT 21.8 H, INR 1.99 H, CBC w Diff NO MAN DIFF REQ, RBC 4.55 L, MCV 94.3 H, MCH 31.4 H, MCHC 33.3, RDW 12.4, MPV 7.5, Gran % 63.3, Lymphocytes % 21.0, Monocytes % 12.0 H, Eosinophils % 3.3, Basophils % 0.4, Absolute Granulocytes 7.5 H, Absolute Lymphocytes 2.5, Absolute Monocytes 1.4 H, Absolute Eosinophils 0.4, Absolute Basophils 0 07/23/17 5485: APTT 55 H Assessment/Plan Assessment: 32 y M presented for evaluation of blood clots in the leg PMH: seizure s/p electrode transplant brain surgery Patient was admitted to [facility] floor for management of following conditions: #DVT 2/2 imobility Patient had a recent neurosurgery, his neurosurgeon was contacted in the ED who recommended no bolus of heparin, but administer heparin drip as bridging for wafarin. INR 1.99 today. As this is first episode and it is a provoked DVT wouldnt need hypercoaguability work up. Continue AC for 6 months. And vascular surgery follow-up on discharge - monitor VS - We will dose warfarin 5 mg today and continue bridging with heparin. - leg elevation and compression. - compresion stockings for discharge. - vascular surgery on board #Leukocytosis Patient has not spiked fever. no active source of infection suspected. The WBC count is without a left shift there are no bands present. -Probably reactive -Monitor off antibiotics #history of Seizures: - continue home medication - note that warfarin metabolism could be affected with carb FC/Regular diet Problem List: 1. DVT (deep venous thrombosis) Pain Ratin Pain Location: n/a Pain Goal: Pain 4 or less Pain Plan: prn Tomorrow's Labs & Rationales: INR Dane TAVAREZ,Amir 07/24/17 1138: Attending MD Review Statement Attending Statement Attending MD Statement: examined this patient, discuss w/resident/PA/OCULAR CARE TECHNICIAN, agreed w/resident/PA/OCULAR CARE TECHNICIAN, reviewed EMR data (avail), discussed with nursing Attending Assessment/Plan: Pt reports doing OK. No overnight issues. Tolerating anticoag OK -- appreciate Vascular input -- cont to monitor INR -- rest of the plan as per resident's note
[2017-07-24 15:18] VITALS: BP 122/62
[2017-07-24 19:09] LABS: PTT 45 SEC (25-37)
[2017-07-24 21:28] VITALS: BP 122/60
[2017-07-25 02:30] LABS: PTT 77 SEC (25-37)
[2017-07-25 06:51] VITALS: BP 118/72
--- NOTE | 2017-07-25 07:51 | PN- Housestaff ---
Vidal Arthur MD,[facility] 07/25/17 0750: Subjective Follow-up For: DVT h/o seizure Subjective: Patient visited today, was lying in bed comfortably in no acute distress, was alert and oriented. Seizure percautions in effect. No fever or chills, no shortness of breathing, no chest pain, no other events. maxine wrap per vascular surgery. INR still not terapeutic. Will consider increase dose of coumadin considering carbamazepine treatment. anticiapted discharge tomorrow. asked regarding smoking cigarretes, informed medically any amount of smoking is not recommended. Review of Systems Constitutional: Reports: see HPI. Objective Last 24 Hrs of Vital Signs/I&O Vital Signs Date Time Temp Pulse Resp B/P B/P Pulse O2 O2 Flow FiO2 Mean Ox Delivery Rate 07/25 0651 98.0 82 20 118/72 95 07/24 2128 98.8 97 17 122/60 95 Room Air 07/24 1518 99.6 86 18 122/62 94 Room Air Intake & Output 07/25 1600 07/25 0800 07/25 0000 Intake Total 120 2252 Output Total 1780 Balance -1660 2252 Intake, IV 252 Intake, Oral 120 2000 Number 0 Bowel Movements Output, Urine 1780 Patient 303 lb 304 lb Weight Weight Bed scale Bed scale Measurement Method Physical Exam General Appearance: Alert, Oriented X3, Cooperative, No Acute Distress Skin: No Significant Lesion Skin Temp/Moisture Exam: Warm/Dry HEENT: Atraumatic, EOMI Cardiovascular: Normal S1, Normal S2 Lungs: Clear to Auscultation, Normal Air Movement Abdomen: Soft, No Tenderness Neurological: Normal Speech, Strength at 5/5 X4 Ext Extremities: Improved swelling and redness in right leg, MAXINE in place. Current Medications: Current Medications Sig/Regina Start time Last Medication Dose Route Stop Time Status Admin Acetaminophen 650 MG .STK-MED ONE 07/25 212 DC PO 07/25 213 Acetaminophen 650 MG .STK-MED ONE 07/24 2054 DC PO 07/25 2055 Acetaminophen 650 MG Q4P PRN 07/23 2300 AC 07/25 PO 021 Carbamazepine 600 MG DAILY 07/23 0900 AC 07/25 PO 1006 Carbamazepine 800 MG AT BEDTIME 07/22 2100 AC 07/24 PO 204 Chlordiazepoxide HCl 100 MG .STK-MED ONE 07/24 1750 DC PO 07/24 1751 Cholecalciferol 2,000 IU DAILY 07/23 0900 AC 07/25 PO 1006 Heparin Sodium 5,320 UNIT ONE ONE 07/25 1999 DC 07/24 (Porcine) IV 07/24 Heparin Sodium/ 25,000 UNIT Q24H 07/22 1545 AC 07/25 Dextrose IV 0549 Dextrose/Water 500 ML Oxycodone HCl 5 MG BID PRN 07/22 2100 AC 07/25 PO 0013 Warfarin Sodium 5 MG COUMADIN 1700 ONE 07/24 1700 DC 07/24 PO 07/24 1701 1730 Zonisamide 600 MG 2100 07/22 2300 AC 07/24 PO 2045 Last 24 Hrs of Lab/Fran Results Last 24 Hrs of Labs/Mics: Laboratory Tests 07/25/17 0730: PT 17.3 H, INR 1.58 H 07/25/17 0205: APTT 77 H 07/24/17 1640: APTT 45 H Assessment/Plan Assessment: 32 y M presented for evaluation of blood clots in the leg PMH: seizure s/p electrode transplant brain surgery VS, Ph Ex at admission: BP 117/74, other insignificant Labs at admission: insignificant Imagings at admission: Doppler LE: 1. The study demonstrates noncompressible deep vein thrombosis in the right calf extending to the right lower femoral vein. 2. There are no focal fluid collections. 3. This critical result was discussed with Dr Diaz by telephone on 07/22/2017 at 1:30 PM and it was ascertained that the content and urgency of the report was understood at the time of direct communication. Patient was admitted to floor for management of following conditions: DVT: ,most likely related to imobility. Dr Dobbs was contacted regarding the care and recommended Coumadin treatment. Heprin IV without bolus was administered for bridging. INR today 1/6, Patient taking carbamazepine for seizure, will increase the dose today, the plan would be to discharge on 5mg and follow in Anticoag clinic. - admit patient to floor - monitor VS - continue heparin drip without bolus - continue warfarin, increase dose to 7.5 today. - Follow vascular surgery - PT history of Seizures: - continue home medication - note that warfarin metabolism could be affected with carb FC Regular diet Problem List: 1. Seizure 2. DVT (deep venous thrombosis) Pain Ratin Pain Location: None Pain Goal: Pain 4 or less Pain Plan: Continue current plan Tomorrow's Labs & Rationales: CBC INR Fanny TAVAREZYurimaribell 07/25/17 1247: Attending MD Review Statement Attending Statement Attending MD Statement: examined this patient, discuss w/resident/PA/E COMMERCE MARKETING MANAGER, agreed w/resident/PA/E COMMERCE MARKETING MANAGER, reviewed EMR data (avail), discussed with nursing, discussed with case mgmt, amended to note Attending Assessment/Plan: Resting comfortably not in any acute distress. Denies shortness of breath or chest pain. Denies palpitation. Denies lower extremity pain or swelling. On examination he has no calf swelling or tenderness. Calves are symmetric bilaterally. Distal pulses are weakly palpable. INR has trended down today from 1.99 yesterday to 1.54 today. Recommendations: - Administer Coumadin 7.5 mg 1 tonight. If INR is therapeutic tomorrow, patient may be discharged home on oral anticoagulation therapy. If INR remains subtherapeutic he may be discharged with Coumadin and Lovenox bridging. This has been discussed with the patient and his father. His father he is a retired nurse and has stated that he will be able to administer the patient's medications. -Apparently the patient is scheduled to undergo further neurosurgery sometime in the future. He has been strongly counseled to follow-up with his neurosurgeon prior to scheduling of further surgery and advised to adequately plan holding his anticoagulant therapy. We will also be sending discharge records to his neurosurgeon upon discharge. -I have counseled patient on the risks of tobacco use and counseled him to abstain. I did reinforce this at the behest of his father. Patient however states that the vascular service and his neurosurgeon have told him that he is okay to smoke 2-3 sticks of cigarettes daily. He wants this to be related to his father. I did reinforce to the patient that I would not recommend him smoking any cigarettes at all. We did offer him a nicotine patch. We will provide him with additional material to help him abstain from cigarette use. Patient has also stated that his neurosurgeon allows him to smoke marijuana to help him following brain surgery. Patient seen and examined. Medical records reviewed. Currently
[2017-07-25 08:30] LABS: PT 17.3 SEC (9.4-12.5)
[2017-07-25] MEDS ORDERED: COUMADIN5 M2 PO (08:48)
--- NOTE | 2017-07-25 08:58 | Patient Discharge Instructions ---
Discharge Instructions General Discharge Information You were seen/treated for: Clot in leg Watch for these problems: Severe swelling, pain, erythema, shourtness of breathing, cough, dizziness, weakness or worsening of any other symptoms. Special Instructions: Please follow with your PCP within one week of discharge. Please follow with your neurosurgeon within one week of discharge. You need to have blood work done on (INR) and follow with your PCP with lab results. Please follow with anticoagulation clinic regarding your coumadin treatment. You need to contine medication for at least 3 months. Please continue using your compression stockings. Please take your warfarin on same time of the day (perferably daily in the evening). If you miss a dose DONT DOUBLE NEXT DOSE and continue to take the regular dose. Diet Continue normal diet: No Recommended Diet: Heart Healthy Activity Full Activity/No Limits: No Activity Self Limited: Yes Acute Coronary Syndrome Inclusion Criteria At DC or during hospital stay patient has or had the following: ACS DIAGNOSIS No Discharge Core Measures Meds if any: Prescribed or Continued at Discharge Meds if any: NOT Prescribed or Continued at Discharge Congestive Heart Failure Inclusion Criteria At DC or during hospital stay patient has or had the following: CHF DIAGNOSIS No Discharge Core Measures Meds if any: Prescribed or Continued at Discharge Meds if any: NOT Prescribed or Continued at Discharge Cerebrovascular accident Inclusion Criteria At DC or during hospital stay patient has or had the following: CVA/TIA Diagnosis No Discharge Core Measures Meds if any: Prescribed or Continued at Discharge Meds if any: NOT Prescribed or Continued at Discharge Venous thromboembolism Inclusion Criteria VTE Diagnosis No VTE Type NONE VTE Confirmed by (Test) NONE Discharge Core Measures - Per Current guidelines, there needs to be overlap - treatment for the first 5 days of Warfarin therapy. - If discharged on Warfarin prior to 5 days of - overlap therapy, the patient will need to be - assessed for post discharge needs including - *Post discharge parental anticoagulation - *Warfarin and/or parental anticoagulation education - *Follow up date to check INR post discharge At least 5 days overlap therapy as Inpatient No Meds if any: Prescribed or Continued at Discharge Note: Overlap Therapy is Warfarin and Anticoagulant Meds if any: NOT Prescribed or Continued at Discharge
[2017-07-25 13:54] VITALS: BP 128/58
[2017-07-25 16:13] LABS: PTT 38 SEC (25-37)
[2017-07-25 21:32] VITALS: BP 130/70
[2017-07-25 23:21] LABS: PTT > 120 SEC (25-37)
[2017-07-26 06:01] VITALS: BP 118/72
--- NOTE | 2017-07-26 08:00 | PN- Housestaff ---
Vidal Arthur MD,Ami 07/26/17 0800: Subjective Follow-up For: DVT h/o seizure Subjective: Patient visited today, was lying in bed comfortably in no acute distress, was alert and oriented. Seizure percautions in effect. No fever or chills, no shortness of breathing, no chest pain, no other events. maya wrap per vascular surgery. INR still not terapeutic. added lovenox to complete total 5days of brigding. Planned to discharge on higher dose of warfarin. walked independantly. Patient was discharged with recommendations below. at 1:20 rapid responce was called as patient had an episode of seizure. Head CT scan was performed. After reviewing imaging with Dr. Dobbs, neurosurgeon patient was considered a safe to be discharged. Permission was obtained to continue anticoagulation. Patient was discharged with recommendation to follow in outpatient (note in detail instruction section). Review of Systems Constitutional: Reports: see HPI. Objective Last 24 Hrs of Vital Signs/I&O Vital Signs Date Time Temp Pulse Resp B/P B/P Pulse O2 O2 Flow FiO2 Mean Ox Delivery Rate 07/26 0601 98.3 73 20 118/72 95 Room Air 07/25 2132 98.7 84 20 130/70 96 Room Air 07/25 1354 98.1 91 20 128/58 95 Room Air Intake & Output 07/26 1600 07/26 0800 07/26 0000 Intake Total 320 Output Total 1325 Balance -1325 320 Intake, Oral 320 Output, Urine 1325 Patient 306 lb Weight Physical Exam General Appearance: Alert, Oriented X3, Cooperative, No Acute Distress Skin: No Significant Lesion HEENT: Atraumatic Cardiovascular: Normal S1, Normal S2 Lungs: Clear to Auscultation, Normal Air Movement Abdomen: Soft, No Tenderness Extremities: Improved swelling and erythema Current Medications: Current Medications Sig/Regina Start time Last Medication Dose Route Stop Time Status Admin Acetaminophen 650 MG Q4P PRN 07/23 2300 AC 07/25 PO 0214 Carbamazepine 600 MG DAILY 07/23 899 AC 07/26 PO 09 Carbamazepine 800 MG AT BEDTIME 07/22 2100 AC 07/25 PO 2047 Cholecalciferol 2,000 IU DAILY 07/23 899 AC 07/26 PO 0901 Enoxaparin Sodium 200 MG ONCE ONE 07/26 1045 DC SC 07/26 1046 Enoxaparin Sodium 100 MG ONCE ONE 07/26 1015 DC 07/26 SC 07/26 1016 1035 Enoxaparin Sodium 40 MG ONCE ONE 07/26 1015 DC 07/26 SC 07/26 1016 1035 Heparin Sodium 15,000 UNIT .STK-MED ONE 07/25 1835 DC (Porcine) IV 07/25 1836 Heparin Sodium 10,300 UNIT ONCE ONE 07/25 1800 DC 07/25 (Porcine) IV 07/25 1801 1839 Heparin Sodium/ 25,000 UNIT Q24H 07/22 1545 DC 07/26 Dextrose IV 0906 Dextrose/Water 500 ML Oxycodone HCl 5 MG BID PRN 07/22 2100 AC 07/26 PO 0813 Warfarin Sodium 7.5 MG COUMADIN 1700 ONE 07/25 1700 DC 07/25 PO 07/25 1701 1719 Zonisamide 600 MG 2100 07/22 2300 AC 07/25 PO 2048 Last 24 Hrs of Lab/Fran Results Last 24 Hrs of Labs/Mics: Laboratory Tests 07/26/17 0650: PT 19.2 H, INR 1.75 H, APTT 59 H, CBC w Diff NO MAN DIFF REQ, RBC 4.26 L, MCV 94.5 H, MCH 31.9 H, MCHC 33.7, RDW 12.2, MPV 7.4, Gran % 59.4, Lymphocytes % 26.4, Monocytes % 9.8 H, Eosinophils % 3.9, Basophils % 0.5, Absolute Granulocytes 6.4, Absolute Lymphocytes 2.8, Absolute Monocytes 1.1 H, Absolute Eosinophils 0.4, Absolute Basophils 0.1 07/26/17 0600: PT Cancelled, INR Cancelled 07/26/17 0530: APTT Cancelled 07/25/17 2247: APTT > 120 *H 07/25/17 1528: APTT 38 H Assessment/Plan Assessment: 32 y M presented for evaluation of blood clots in the leg PMH: seizure s/p electrode transplant brain surgery VS, Ph Ex at admission: BP 117/74, other insignificant Labs at admission: insignificant Imagings at admission: Doppler LE: 1. The study demonstrates noncompressible deep vein thrombosis in the right calf extending to the right lower femoral vein. 2. There are no focal fluid collections. 3. This critical result was discussed with Dr Diaz by telephone on 07/22/2017 at 1:30 PM and it was ascertained that the content and urgency of the report was understood at the time of direct communication. Patient was admitted to floor for management of following conditions: DVT: most likely related to immobility. Dr Dobbs was contacted regarding the care and recommended Coumadin treatment. Heprin IV without bolus was administered for bridging. INR today 04/17, Patient taking carbamazepine for seizure,. Planned to discharge patient on 7.5mg warfarin and Lovenox to complete the bridging period and achieve therapeutic INR level. Patients father is a retired Medic and will administer the injections. Patient was discharged with instructions to follow on with anticoag clinic. Patient need to follow with PCP, vascular surgeon and neurosurgeon. Patient was discharged with instructions below. Please follow with your PCP within one week of discharge. Please follow with your neurosurgeon within one week of discharge. Please follow with anticoagulation clinic within 2 days of discharge (on ) regarding your coumadin treatment. You need to contine medication for at least 3 months. Please continue using your compression stockings. Please take your warfarin on same time of the day (perferably daily in the evening). If you miss a dose DONT DOUBLE NEXT DOSE and continue to take the regular dose. Problem List: 1. DVT (deep venous thrombosis) 2. Seizure Pain Ratin Pain Location: None Pain Goal: Pain 4 or less Pain Plan: Conitue current plan Tomorrow's Labs & Rationales: none Fanny TAVAREZ,Lucian 07/26/17 1303: Attending MD Review Statement Attending Statement Attending MD Statement: examined this patient, discuss w/resident/PA/SALAD MAKER, agreed w/resident/PA/SALAD MAKER, discussed with family, reviewed EMR data (avail), discussed with nursing, discussed with case mgmt, amended to note Attending Assessment/Plan: Patient seen and examined. Resting comfortably and not in any acute distress. No issues overnight reported by nursing staff. He was observed ambulating freely around the unit today. Denies any chest pain or shortness of breath. Denies palpitations. He is not requiring oxygen supplementation. He denies lower extremity pain. His right lower extremity is wrapped with compression wrapping. He has no calf tenderness on examination. I did explain to the patient and his father that patient will require anticoagulation for 3 months for his probable deep vein thrombosis. He is neurosurgeon Dr. Dobbs has recommended anticoagulation with vitamin K antagonist in order to provide easy reversibility should the need arise. His INR remains subtherapeutic today. We will be discharging today to continue on Coumadin with bridging utilizing Lovenox. He has received a dose of Lovenox here in the hospital. She will continue on Lovenox twice a day at home and follow-up with his primary care provider in the next 48 hours for repeat INR and adjustment of his Coumadin dose as needed. This has been explained in detail to the patient and his father. His father states he will be willing to administer the Lovenox to the patient at home. Father did raise concern about falls. Patient has a history of childhood onset seizures. He has had falls in the bathroom before. His neurosurgeon is aware of this fall risk. In order to avoid recurrent lower extremity deep vein thrombosis and propagation to pulmonary embolism anticoagulation therapy has been recommended. I did classification counselor the patient and his father regarding fall precautions and recommended that someone should always be around the patient particularly in high fall risk areas. They did verbalize understanding. His father will be with him at home. I did personally speak with his neurosurgeon Dr. Elkin Dobbs today ([phone]). He is in agreement with the plan of care. He is in agreement with the patient receiving 3 months of anticoagulation therapy. He is medically stable to be discharged home today.
[2017-07-26 08:05] LABS: ABSOLUTE BASOPHIL COUNT 0.1 /CUMM (0.0-0.2); ABSOLUTE EOSINOPHIL COUNT 0.4 /CUMM (0.0-0.7); ABSOLUTE GRANULOCYTE CT 6.4 /CUMM (1.4-6.5); ABSOLUTE LYMPH COUNT 2.8 /CUMM (1.2-3.4); ABSOLUTE MONOCYTE COUNT 1.1 /CUMM (0.10-0.60); BASOPHIL % 0.5 % (0.0-2.0); EOSINOPHIL % 3.9 % (0-5); GRANULOCYTE % 59.4 % (42.2-75.2); HEMATOCRIT 40.2 % (42-52); MEAN CORPUSCULAR HGB 31.9 PG (27.0-31.0); MEAN CORPUSCULAR HGB CONC 33.7 G/DL (33.0-37.0); MEAN CORPUSCULAR VOLUME 94.5 FL (80.0-94.0); MEAN PLATELET VOLUME 7.4 FL (7.4-10.4); PLATELET COUNT 271 /CUMM (130-400); RBC DISTRIBUTION WIDTH 12.2 % (11.5-14.5); RED BLOOD CELL CT 4.26 /CUMM (4.70-6.10); WHITE BLOOD CELL COUNT 10.7 /CUMM (4.8-10.8)
[2017-07-26 08:49] LABS: PTT 59 SEC (25-37)
[2017-07-26 08:56] LABS: PT 19.2 SEC (9.4-12.5)
[2017-07-26] MEDS ORDERED: LOVENOX100 MG/1 M SC ×3 (09:38→10:17)
[2017-07-26] MEDS ORDERED: COUMADIN2.5 M1 PO ×3 (09:38→10:17)
--- NOTE | 2017-07-26 11:07 | Discharge Summary ---
Hospital Course Allergies: Coded Allergies: No Known Allergies (07/22/17) Discharge Instructions General Discharge Information Follow-Up Instructions/Appts: Follow-up with your neurosurgeon next week. Follow-up with your primary care provider On July 28, 2016 for evaluation of INR and adjustment of anticoagulant therapy as needed. Report any abnormal bleeding to her primary care provider. Medications at Discharge Discharge Medications: Continue taking these medications: Clobazam (ONFI) 10 MG TABLET 3 Tablet ORAL TWICE DAILY Comments: Last Taken: 07/26/17 Time: 0900AM Zonisamide (Zonegran) 100 MG CAPSULE 6 Capsule ORAL Every night Comments: CAN ONLY HAVE BRAND NAME. GENERIC CAUSES PHYSCOTIC EPISODES Last Taken: 07/25/17 Time: 2046PM Carbamazepine (Carbamazepine) 300 MG CPMP.12HR 2 Capsule ORAL TWICE DAILY Qty = 120 Comments: Last Taken: 07/26/17 Time: 0900AM Cholecalciferol (Vitamin D3) (Vitamin D3) 2,000 UNIT TABLET 1 Tablet ORAL DAILY Comments: Last Taken: 07/26/17 Time: 0900AM Oxycodone HCl (Oxycodone HCl) 5 MG TABLET 1 Tablet ORAL 2 x Daily as needed as needed for PAIN Qty = 12 Comments: Last Taken: 07/26/17 Time: 0815AM Carbamazepine (Carbamazepine) 200 MG CPMP.12HR 1 Capsule ORAL Every night Qty = 30 Comments: 800MG DOSE A BEDTIME Last Taken: 07/25/17 Time: 2047PM Start taking the following new medications: Enoxaparin Sodium (Lovenox) 100 MG/ML SYRINGE 140 Milligram Inject into fatty tissue TWICE DAILY Qty = 6 No Refills Instructions: . Comments: Last Taken: 07/26/17 Time: 1045AM Warfarin Sodium (Coumadin) 2.5 MG TABLET 3 Tablet ORAL DAILY Qty = 60 Refills = 1 Instructions: .. Comments: Last Taken: 07/25/17 Time: 1719PM Attending MD Review Statement Documenting Attending: Lucian Escobedo MD Other Findings: .Discharged in stable medical condition
[2017-07-26 13:44] VITALS: BP 136/78
--- NOTE | 2017-07-26 13:46 | Event Note ---
Event Note Event Note: Situation: At 1:20 PM rapid response called, nursing informed patient had seizure Background: 32 y M presented for evaluation of blood clots in the leg after being in bed recently, PMH significant for seizure s/p recent electrode transplant brain surgery. Patient was diagnosed with DVT in the right leg, started to administer warfarin while bridging with Heparin and was planned to be discharged today. A and Plan: Patients father was present in the bathroom at the time of event. He described the episode was very similar to previous episode he had, happened in the restroom while urinating, he lost balance control, slowly fell on the floor but never hit his head. As per Dad patient had 3-4 episodes of seizure, the most recent last night for 3 seconds with 3minutes postictal. The most recent similar episode was last . Vital signs and blood sugar were insignificant. Head CT scan stat was ordered considering patient was on anticoagulation medication. Blood work was done, we will continue to monitor patient for another day.
--- NOTE | 2017-07-26 14:35 | CT SCAN REPORT ---
EXAMINATION: CT HEAD WITHOUT CONTRAST CLINICAL INFORMATION: Likely seizure. Recent brain surgery now on anticoagulation for DVT. COMPARISON: MRI scan of the brain 02/28/2017. TECHNIQUE: Contiguous axial imaging was performed from the skull base to vertex without intravenous administration of contrast. DLP: 629.74 mGy-cm FINDINGS: There are sequelae of surgical changes in the bilateral temporal and parietal bones. Multiple holes are noted in the bilateral temporoparietal calvarium, and there are multiple small areas of linear density intracranially adjacent to regions bilaterally. There is an equivocal focus of hemorrhage in the right temporo-occipital region adjacent to one of the electrodes (image 31/64 and image 52/220). No evidence of an acute territorial infarct is demonstrated. No abnormal mass effect or midline shift is seen. Hoover to white matter differentiation is well preserved. No extra-axial fluid collections are identified. The ventricles are normal in size. There is no abnormal attenuation within the brain parenchyma. The mastoid air cells and visualized portions of the paranasal sinuses are well aerated. IMPRESSION: 1. There are sequelae of prior surgery in the bilateral temporoparietal calvarium. Linear metallic density intracranially adjacent to the craniotomy sites are seen bilaterally. 2. There is equivocal hemorrhage adjacent to an electrode in the right temporo-occipital region. There are no extra-axial fluid collections and there are no acute territorial infarcts. 3. This critical result was discussed with Narinder Drake by telephone on 07/26/2017 at 2:20 PM and it was ascertained that the content and urgency of the report was understood at the time of direct communication.
[2017-07-26 14:58] VITALS: BP 110/56
--- NOTE | 2017-07-26 17:09 | Event Note ---
Event Note Event Note: Situation: Equivocal CT finding of hemorrhage at the right temporal occipital area in a patient with recent head surgery and currently on anticoagulation for DVT tx. Spoke to Dr Dobbs who is the [facility]'s neurosurgeon and informed him about the CT findings.Dr Dobbs requested to see the CT and compare it with the one done 1 week ago at Home. Contacted radiology department to submit the image through [facility] since Dr Horne did not have access to [facility]. Dr Dobbs called me back and stated that he had reviewed the reading and he did not feel that there was any signficant fidnings. He stated he was okay for us to proceed with discharging the patient and a follow up had already been arranged. He requested we also give a patient a disc copy of the CT so that the patient can bring it to the clinic. Pt was given the disc and discharge order place.
== END 2017-07-26 20:05 | DRG 197 ==
LOC: ERH 13:56 → ERHI 17:34 → 2NB 17:34 → ENRESERV 18:15 → ENTRNSPT 18:49 → EDTRNSPTSTS 19:04 → 2NB 19:14 → CMPTRNSPT 19:29 → 2NB 07-25 08:10 → ENTRNSPT 07-26 19:36 → EDTRNSPTSTS 07-26 19:58 → EDTRNSPT 07-26 19:58 → 2NB 07-26 20:05 → CMPTRNSPT 07-26 20:14
PROVIDERS: Hospitalist; Internal Medicine; Internal Medicine Infectious Disease; Physician Assistant Medical; Radiology Vascular & Interventional Radiology; Student in an Organized Health Care Education/Training Program
DX: I82.411 Acute embolism and thrombosis of right femoral vein (principal); Z98.890 Other specified postprocedural states; T81.72XA Complication of vein following a procedure, not elsewhere classified, initial encounter; E66.9 Obesity, unspecified; Z68.41 Body mass index [BMI] 40.0-44.9, adult; F17.210 Nicotine dependence, cigarettes, uncomplicated; Z79.891 Long term (current) use of opiate analgesic; D72.829 Elevated white blood cell count, unspecified; R79.1 Abnormal coagulation profile; W18.30XA Fall on same level, unspecified, initial encounter; Y92.231 Patient bathroom in hospital as the place of occurrence of the external cause
CPT/HCPCS: 2NBP; 36415; 36592; 82436; 93005; 93010; 96374; J1644; J1650; J7060

== ENCOUNTER 2017-11-17 21:23 | Emergency (ER) | payer OTHER ==
[~2017-11-17] VITALS: Ht 175.3 cm; Wt 141.5 kg
[~2017-11-17 21:23] MED LIST changes: +CARBAMAZEPINE200 M6 PO; +CARBAMAZEPINE300 M1 PO; +COUMADIN2.5 M1 PO; +COUMADIN5 M2 PO; +LOVENOX100 MG/1 M SC; +OXYCODONE HCL5 M1 PO; +VITAMIN D32000 UNI1 PO
[2017-11-17 22:18] LABS: ABSOLUTE BASOPHIL COUNT 0 /CUMM (0.0-0.2); ABSOLUTE EOSINOPHIL COUNT 0.1 /CUMM (0.0-0.7); ABSOLUTE GRANULOCYTE CT 8.2 /CUMM (1.4-6.5); ABSOLUTE LYMPH COUNT 2.3 /CUMM (1.2-3.4); ABSOLUTE MONOCYTE COUNT 0.9 /CUMM (0.10-0.60); BASOPHIL % 0.3 % (0.0-2.0); EOSINOPHIL % 1.2 % (0-5); GRANULOCYTE % 70.6 % (42.2-75.2); HEMATOCRIT 48.7 % (42-52); MEAN CORPUSCULAR HGB 31.6 PG (27.0-31.0); MEAN CORPUSCULAR HGB CONC 33.8 G/DL (33.0-37.0); MEAN CORPUSCULAR VOLUME 93.7 FL (80.0-94.0); MEAN PLATELET VOLUME 6.8 FL (7.4-10.4); PLATELET COUNT 290 /CUMM (130-400); RBC DISTRIBUTION WIDTH 12.9 % (11.5-14.5); WHITE BLOOD CELL COUNT 11.6 /CUMM (4.8-10.8)
[2017-11-17 22:34] LABS: PT 17.7 SEC (9.4-12.5)
--- NOTE | 2017-11-17 22:52 | ED GENERAL ADULT ---
History of Present Illness General Chief Complaint: General Adult Stated Complaint: "CUT ON BACK OF HEAD AND FOREHEAD FROM SEIZURE" Source: patient, family, old records Exam Limitations: no limitations Vital Signs & Intake/Output Vital Signs & Intake/Output Vital Signs Date Time Temp Pulse Resp B/P B/P Pulse O2 O2 Flow FiO2 Mean Ox Delivery Rate 11/17 2324 98.7 87 20 130/81 95 Room Air 11/17 2247 Room Air 11/17 2135 97.9 97 20 104/66 97 Room Air ED Intake and Output 11/18 0000 11/17 1200 Intake Total Output Total Balance Patient 312 lb Weight Weight Reported by Patient Measurement Method Allergies Coded Allergies: No Known Allergies (07/22/17) Reconcile Medications Carbamazepine 300 MG CPMP.12HR 2 CAP PO BID SEIZURES (Reported) Carbamazepine 200 MG CPMP.12HR 1 CAP PO QPM SEIZURES (Reported) Cholecalciferol (Vitamin D3) (Vitamin D3) 2,000 UNIT TABLET 1 TAB PO DAILY VITAMIN SUPPORT (Reported) Clobazam (ONFI) 10 MG TABLET 3 TAB PO BID SEIZURES (Reported) Enoxaparin Sodium (Lovenox) 100 MG/ML SYRINGE 140 MG SC BID BLOOD THINNER . Oxycodone HCl 5 MG TABLET 1 TAB PO BIDP PRN PAIN (Reported) Warfarin Sodium (Coumadin) 2.5 MG TABLET 3 TAB PO DAILY BLOOD THINNER .. Zonisamide (Zonegran) 100 MG CAPSULE 6 CAP PO QPM SEIZURES (Reported) Triage Note: PT HERE WITH C/O S/P SEIZURE. PT REPORTS BEING ON WARFARIN FOR BLOOD CLOTS. PT ALSO REPORTS RECENTLY HAVING BRAIN SURGEY AT [place] BY DR GAONA. PT ACTIVLEY HAVING A SEIZURE IN TRIAGE. NO TONIC/CLONIC ACTIVITY NOTED. Triage Nurses Notes Reviewed? yes Onset: Abrupt Duration: hour(s): (1), constant, continues in ED Timing: single episode today Injury Environment: home Severity: mild, moderate Severity Numbers: 6 No Modifying Factors: none HPI: 32-year-old male history of seizure disorder, DVT on Coumadin presents for evaluation after a seizure. Patient reports he has 5-6 seizures per day which is been happening since he was 8 years old. He states he is supposed to not get up and walk but he did today. While he was walking in his kitchen he had a seizure where he fell hit the front of his head on the ground. The seizure yet today was this typical seizure he has been having his whole life. No chest pain shortness of breath. He states he currently does not feel he is in a postictal state. He is on blood thinners for DVT. He has a laceration to the back of his head that has been present for several weeks. He has fallen multiple times causing it to open up. He just saw a doctor today and was started on antibiotics they felt like it was getting infected. He has a new laceration to the left medial eyebrow. No vomiting or changes in vision. He reports only mild headache. (Shayne Bernard) Past History Travel History Traveled to [place] past 21 day No Medical History Any Pertinent Medical History? see below for history Neurological: seizure EENT: NONE Cardiovascular: NONE Respiratory: asthma Gastrointestinal: NONE Hepatic: NONE Renal: NONE Musculoskeletal: NONE Psychiatric: NONE Endocrine: NONE Blood Disorders: DVT Cancer(s): NONE OPERATIONS SUPPORT REPRESENTATIVE/Reproductive: NONE History of MRSA: No History of VRE: No History of CDIFF: No Tetanus Vaccine: 08/11/11 Surgical History Surgical History: BRAIN SURGERY Psychosocial History Who do you live with Father Services at Home None What is your primary language Mohawk Tobacco Use: Never used ETOH Use: denies use Illicit Drug Use: denies illicit drug use Family History Hx Contributory? No (Shayne Bernard) Review of Systems Review of Systems Constitutional: Reports: no symptoms. EENTM: Reports: no symptoms. Respiratory: Reports: no symptoms. Cardiovascular: Reports: no symptoms. GI: Reports: no symptoms. Genitourinary: Reports: no symptoms. Musculoskeletal: Reports: no symptoms. Skin: Reports: see HPI (SCALP LAC). Neurological/Psychological: Reports: headache. Hematologic/Endocrine: Reports: no symptoms. Immunologic/Allergic: Reports: no symptoms. All Other Systems: Reviewed and Negative (Shayne Bernard) Physical Exam Physical Exam General Appearance: well developed/nourished, no apparent distress, alert, awake , obese Head: normal appearance, THERE IS A HEALING OCCIPTIAL SCALP LACERATION TO THE POSTERIOR SCALP. NO ACITIVE BLEEDING. THERE IS A 1.5CM LACERATION TO THE MEDIAL LEFT EYEBROW. SQ TISSUE IS VISIBEL. NO FB. NO JOSUÉ TENDERNESS OR BRUISING. Eyes: Bilateral: normal appearance, PERRL, EOMI. Ears, Nose, Throat: hearing grossly normal Neck: normal inspection, supple, full range of motion Respiratory: normal breath sounds, chest non-tender, no respiratory distress, lungs clear Cardiovascular: regular rate/rhythm, normal peripheral pulses Peripheral Pulses: 2+ radial (R), 2+ radial (L) Gastrointestinal: soft, non-tender Back: normal inspection, normal range of motion, no vertebral tenderness Extremities: normal inspection, normal range of motion, no edema Skin: intact, normal color, warm/dry Lymphatic: no anterior cervical norma Core Measures ACS in differential dx? No CVA/TIA Diagnosis: No Sepsis Present: No Sepsis Focused Exam Completed? No (Shayne Bernard) Progress Differential Diagnoses I considered the following diagnoses in my evaluation of the patient: [ Intracranial hemorrhage, intracranial trauma, laceration, foreign body, seizure disorder] Plan of Care: Orders Procedure Date/time Status PROTHROMBIN TIME 11/17 2152 Complete TROPONIN LEVEL 11/18 2151 Complete COMPREHENSIVE METABOLIC PANEL 11/18 2151 Complete CBC WITHOUT DIFFERENTIAL 11/18 2151 Complete EKG 11/18 2151 Active Laboratory Tests 11/17/17 2200: Anion Gap 12, Estimated GFR > 60, BUN/Creatinine Ratio 14.4, Glucose 92, Calcium 9.2, Total Bilirubin 0.3, AST 20, ALT 32, Alkaline Phosphatase 83, Troponin I < 0.01, Total Protein 7.2, Albumin 4.2, Globulin 3.0, Albumin/Globulin Ratio 1.4, PT 17.7 H, INR 1.62 H, CBC w Diff NO MAN DIFF REQ, RBC 5.20, MCV 93.7, MCH 31.6 H, MCHC 33.8, RDW 12.9, MPV 6.8 L, Gran % 70.6, Lymphocytes % 20.1 L, Monocytes % 7.8, Eosinophils % 1.2, Basophils % 0.3, Absolute Granulocytes 8.2 H, Absolute Lymphocytes 2.3, Absolute Monocytes 0.9 H, Absolute Eosinophils 0.1 , Absolute Basophils 0 Patient is here for evaluation after a seizure that caused a fall. Patient has a long history of seizures reports he has 6 or 7 daily. The seizure he had today was his usual type of seizure. He is followed by [facility]. Patient is not supposed to walk but he was walking today and really had a seizure he fell hit his head he has a laceration to the medial right eyebrow. This was cleaned with sterile water and Betadine 1% lidocaine was used for local pain control. 5 5-0 nylon simple interrupted sutures used to approximate the wound patient tolerated well sterile dressing applied. CT scans of the head and cervical spine are negative for trauma. Chest x-ray is clear basic blood work was obtained is within normal limits. Patient is currently at his baseline he is feeling well. He will be discharged home with instructions to continue his antiseizure medications. Discussed wound care procedures sutures come out in 5- 10 days. Discussed return precautions patient agrees follow-up with neurology. Diagnostic Imaging: Viewed by Me: CT Scan. Discussed w/RAD: CT Scan. Radiology Impression: PATIENT: LIZETH SALINAS PRESENT AGE: 32 PATIENT ACCOUNT NO: [id number] : 86 LOCATION: [facility] ORDERING PHYSICIAN: Shayne ALFARO SERVICE DATE: 11/17/17 EXAM TYPE: CAT - CT CERV SPINE WO IV CONTRAST; CT HEAD WO IV CONTRAST EXAMINATION: CT HEAD AND CT CERVICAL SPINE. CLINICAL INFORMATION: Trauma. Seizure with neck pain after fall. COMPARISON: CT brain 08/20/2017. TECHNIQUE: 5 mm thin axial and 2.5 mm thin images of brain were obtained. Subsequently axial 2.5 mm thin and reformatted 2 mm thin sagittal and coronal images of cervical spine were obtained. [facility]. FINDINGS: BRAIN: The exam is limited secondary to significant artifact. There is no acute intra-axial or extra-axial bleed, masses, collection or midline shift. There is no acute infarct in evolution. The rachel to white matter differentiation is maintained. There is a punctate calcification the right posterior parietal lobe and right frontoparietal subdural space. It is unchanged to previous study. The lateral ventricles are symmetrical in size and configuration without enlargement. Bone windows reveal no calvarial abnormality. There is a left frontal scalp laceration or contusion. Bilateral paranasal sinuses and mastoid air cells are well-aerated. Cervical spine: There is mild straightening of cervical lordosis. The vertebral heights, alignment and disc heights are normal. There is no visible acute fracture, dislocation or subluxation seen. The prevertebral soft tissues are normal. IMPRESSION: No acute intracranial process seen. There is a left frontal scalp laceration or contusion. No calvarial fracture seen. No acute fracture or dislocation cervical spine. DICTATED BY: Jamie Wood MD DATE/TIME DICTATED:11/17/172234 WEIGHT INSPECTOR:HAYDEN DATE/TIME TRANSCRIBED:11/17/172234 CONFIDENTIAL, DO NOT COPY WITHOUT APPROPRIATE AUTHORIZATION. <Electronically signed in Other Vendor System> SIGNED BY: Jamie Wood MD 11/17/17 2251 CXR Impression: PATIENT: LIZETH SALINAS PRESENT AGE: 32 PATIENT ACCOUNT NO: [id number] : 86 LOCATION: [facility] ORDERING PHYSICIAN: Shayne ALFARO SERVICE DATE: 11/17/17 EXAM TYPE: RAD - XRY-PORTABLE CHEST XRAY EXAMINATION: XR PORTABLE CHEST CLINICAL INFORMATION: Fall with chest pain COMPARISON: 06/20/2017 TECHNIQUE: Portable frontal view of the chest was obtained. FINDINGS: Somewhat motion limited study. The lungs are well expanded. There is no focal consolidation, edema, or effusion. No pneumothorax. The cardiomediastinal silhouette is within normal limits. No acute osseous abnormality. IMPRESSION: No acute pulmonary findings. No displaced fractures are seen. DICTATED BY: Everardo Smith MD DATE/TIME DICTATED:11/17/172332 WEIGHT INSPECTOR:HAYDEN DATE/TIME TRANSCRIBED:11/17/172332 CONFIDENTIAL, DO NOT COPY WITHOUT APPROPRIATE AUTHORIZATION. <Electronically signed in Other Vendor System> SIGNED BY: Everardo Smith MD 11/17/172335 Initial ED EKG: normal sinus rhythm, no ST T wave changes (Shayne Bernard) Departure Departure Disposition: HOME OR SELF CARE Condition: Stable Clinical Impression Primary Impression: Laceration of head Qualifiers: Encounter type: initial encounter Location of open wound of head: other part of head Foreign body presence: without foreign body Qualified Code: S01.81XA - Laceration without foreign body of other part of head, initial encounter Referrals: Fred TAVAREZ,Lakhwinder Tafoya (PCP/Family) Additional Instructions: Keep the area clean and dry change dressing daily. Continue your antibiotics for the full course. Tylenol for pain. Make a follow-up with your primary care doctor to review all results of today's visit monitor symptoms return with any concerns. The stitches need to come out in 5 days. Please go over all results of today's visit with your primary care doctor. Contact your primary care doctor to let them know you were here in the emergency room. There may be nonspecific findings which may not be related to your visit today here in the emergency room but may require further evaluation and chronic monitoring by your primary care doctor. If you had a laceration today the chance of foreign body always remains. You should follow-up with your primary care doctor for recheck in 3-5 days for a wound check. If you had an x-ray done there is a chance that a fracture could have been missed on initial read and you should follow-up with your primary care doctor for repeat x-rays if symptoms persist. If your blood pressure was elevated here in the emergency room please have rechecked by lashawn primary care doctor within the next 48. If you were prescribed a narcotic here in the emergency room or any type of controlled substances you're not allowed to drive while taking this medication or operate any type of heavy machinery. Narcotics can make you feel lightheaded dizziness nausea and can cause constipation. You may need to machine operator picker a stool softener. Thank you for choosing [facility] emergency room. Please return to the emergency room immediately if you have any other concerns worsening of symptoms. Departure Forms: Customer Survey General Discharge Information (Shayne Bernard) PA/GEOSCIENCES FACULTY MEMBER Co-Sign Statement Statement: ED Attending supervision documentation- I saw and evaluated the patient. I have also reviewed all the pertinent lab results and diagnostic results. I agree with the findings and the plan of care as documented in the PA's/GEOSCIENCES FACULTY MEMBER's documentation. x I have reviewed the ED Record and agree with the PA's/GEOSCIENCES FACULTY MEMBER's documentation. [] Additions or exceptions (if any) to the PAs/GEOSCIENCES FACULTY MEMBER's note and plan are summarized below: [] (Brian TAVAREZ,Alessandro) Procedures Laceration/Wound Repair Laceration/Wound Repair: Wound Location: face (FOREHEAD) Wound's Depth, Shape: linear, subcutaneous Wound Length (cm): 2 Wound Explored: clean, no foreign body removed, irrigated extensively Irrigated w/ Saline (ccs): 200 Betadine Prep? Yes Anesthesia: 1% lidocaine Volume Anesthetic (ccs): 5 Wound Debrided: minimal Wound Repaired With: sutures Suture Size/Type: 5:0, nylon Number of Sutures: 5 Layer Closure? No Sterile Dressing Applied: Yes Tetanus Status: up to date (Shayne Bernard) Critical Care Note Critical Care Note Critical Care Time: non-applicable (Shayne Bernard)
[2017-11-17 23:24] VITALS: BP 130/81
--- NOTE | 2017-11-17 23:36 | RADIOLOGY REPORT ---
EXAMINATION: XR PORTABLE CHEST CLINICAL INFORMATION: Fall with chest pain COMPARISON: 06/20/2017 TECHNIQUE: Portable frontal view of the chest was obtained. FINDINGS: Somewhat motion limited study. The lungs are well expanded. There is no focal consolidation, edema, or effusion. No pneumothorax. The cardiomediastinal silhouette is within normal limits. No acute osseous abnormality. IMPRESSION: No acute pulmonary findings. No displaced fractures are seen.
== END 2017-11-18 00:10 ==
LOC: ERH 21:23
PROVIDERS: Physician Assistant Medical
DX: S01.81XA Laceration without foreign body of other part of head, initial encounter (principal); R56.9 Unspecified convulsions; W19.XXXA Unspecified fall, initial encounter; Y93.01 Activity, walking, marching and hiking; Y92.000 Kitchen of unspecified non-institutional (private) residence as the place of occurrence of the external cause
CPT/HCPCS: 71045; 93005; 93010; J2001

== ENCOUNTER 2017-11-22 19:58 | Emergency (ER) | payer OTHER ==
[~2017-11-22] VITALS: Ht 175.3 cm; Wt 141.5 kg
[2017-11-22 20:33] LABS: ABSOLUTE BASOPHIL COUNT 0 /CUMM (0.0-0.2); ABSOLUTE EOSINOPHIL COUNT 0.2 /CUMM (0.0-0.7); ABSOLUTE GRANULOCYTE CT 6.9 /CUMM (1.4-6.5); ABSOLUTE LYMPH COUNT 2.7 /CUMM (1.2-3.4); ABSOLUTE MONOCYTE COUNT 0.9 /CUMM (0.10-0.60); BASOPHIL % 0.4 % (0.0-2.0); EOSINOPHIL % 1.6 % (0-5); GRANULOCYTE % 64.4 % (42.2-75.2); HEMATOCRIT 49.7 % (42-52); MEAN CORPUSCULAR HGB 31.6 PG (27.0-31.0); MEAN CORPUSCULAR HGB CONC 34.1 G/DL (33.0-37.0); MEAN CORPUSCULAR VOLUME 92.8 FL (80.0-94.0); MEAN PLATELET VOLUME 6.6 FL (7.4-10.4); PLATELET COUNT 323 /CUMM (130-400); RBC DISTRIBUTION WIDTH 12.9 % (11.5-14.5); RED BLOOD CELL CT 5.36 /CUMM (4.70-6.10); WHITE BLOOD CELL COUNT 10.7 /CUMM (4.8-10.8)
--- NOTE | 2017-11-22 20:52 | RADIOLOGY REPORT ---
EXAMINATION: CHEST 2 VIEWS CLINICAL INFORMATION: Chest pain. COMPARISON: 06/20/2017. TECHNIQUE: PA and lateral views of the chest were obtained. FINDINGS: The cardiac silhouette is not enlarged. The mediastinal and hilar contours are unremarkable. There are neither pleural effusions nor pneumothoraces. There are no consolidations. The osseous structures are stable. IMPRESSION: No evidence for acute disease.
--- NOTE | 2017-11-22 21:38 | ED GENERAL ADULT ---
History of Present Illness General Chief Complaint: Chest Pain Stated Complaint: CHEST PAIN, (ON COUMADEN FOR DVT) Source: patient, family, old records Exam Limitations: no limitations Vital Signs & Intake/Output Vital Signs & Intake/Output Vital Signs Date Time Temp Pulse Resp B/P B/P Pulse O2 O2 Flow FiO2 Mean Ox Delivery Rate 11/22 2354 98.7 88 18 118/56 96 Room Air 11/227 97 Room Air 11/22 2008 97.2 82 18 119/70 97 Room Air Allergies Coded Allergies: No Known Allergies (07/22/17) Reconcile Medications Carbamazepine 300 MG CPMP.12HR 2 CAP PO BID SEIZURES (Reported) Carbamazepine 200 MG CPMP.12HR 1 CAP PO QPM SEIZURES (Reported) Cholecalciferol (Vitamin D3) (Vitamin D3) 2,000 UNIT TABLET 1 TAB PO DAILY VITAMIN SUPPORT (Reported) Clobazam (ONFI) 10 MG TABLET 3 TAB PO BID SEIZURES (Reported) Enoxaparin Sodium (Lovenox) 100 MG/ML SYRINGE 140 MG SC BID BLOOD THINNER . Oxycodone HCl 5 MG TABLET 1 TAB PO BIDP PRN PAIN (Reported) Warfarin Sodium (Coumadin) 2.5 MG TABLET 3 TAB PO DAILY BLOOD THINNER .. Zonisamide (Zonegran) 100 MG CAPSULE 6 CAP PO QPM SEIZURES (Reported) Triage Note: 32M WITH CP. ON COUMADIN FOR DVT DIAGNOSED IN JULY. SEEN LAST WEEK FOR SEIZURE INDUCED FALL W HEAD STRIKE AND LAC. CP STARTED LAST TUESDAY WITH TIGHTNESS. PAIN IS WORSE W DEEP INSPIRATION. +SMOKER. VSS Triage Nurses Notes Reviewed? yes HPI: This is a 32-year-old female with history of long-term seizure disorder status post neurosurgery intervention complicated by right lower extremity DVT, now on chronic Coumadin (for the 6 months), presenting with left-sided chest pain. Patient states that he fell forward 4 days ago in the setting of a seizure and struck his face, lacerating his left eyebrow. Patient believes he also struck his left anterior chest. Since that time, he has had left chest wall pain which is reproducible, worse with deep inspiration. There is been no associated shortness of breath. There is been no new or worsening swelling of the lower extremities. Patient has been compliant with his anticoagulation. He denies any exertional component to the pain or associated diaphoresis or nausea or radiation. He has not tried any medication for the pain at this time. Of note the patient has been experiencing worsening episodes of seizure since the neurosurgery intervention in the spring. According to the patient's father, who brought patient to the emergency department and functions as his advocate, the patient has been having about 3-5 seizures on average per day. They tend to be short lived and resolved without intervention. He has been taking all of his seizure medications. His primary physician as well as his neurologist are aware of the frequency of his seizures. (Francisco Juan MD) Past History Travel History Traveled to [place] past 21 day No Medical History Any Pertinent Medical History? 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 No (Francisco Juan MD) Review of Systems Review of Systems Constitutional: Reports: no symptoms. EENTM: Reports: no symptoms. Respiratory: Reports: no symptoms. Cardiovascular: Reports: chest pain. GI: Reports: no symptoms. Genitourinary: Reports: no symptoms. Musculoskeletal: Reports: no symptoms. Skin: Reports: no symptoms. Neurological/Psychological: Reports: no symptoms. Hematologic/Endocrine: Reports: no symptoms. Immunologic/Allergic: Reports: no symptoms. (Francisco Juan MD) Physical Exam Physical Exam General Appearance: well developed/nourished, no apparent distress, alert, comfortable Comments: Well-appearing, obese young man, no acute distress, alert and oriented 4. Well -healing left eyebrow laceration noted. Also has scalp laceration which is well healing to the occiput. HEENT exam otherwise unremarkable. No JVD, trachea midline. Lungs are clear, no murmur gallops or rubs. Patient has mild tenderness to left anterior chest wall. Abdomen is soft, nontender, nondistended with normal bowel sounds. No obvious asymmetry to bilateral lower extremities or edema. Patient does have compression stocking to right lower extremity. He has intact distal pulses and sensation and movement. Core Measures ACS in differential dx? Yes CVA/TIA Diagnosis: No Sepsis Present: No Sepsis Focused Exam Completed? No (Francisco Juan MD) Progress Differential Diagnoses I considered the following diagnoses in my evaluation of the patient: Clinically suspect musculoskeletal pain in this patient with history of obvious precipitating event and reproducible/respirophasic pain. However mild concern also for thromboembolic disease given history of DVT. Lower concern for ACS in this patient given historic features and exam findings. Lower concern also for pneumonia. Low suspicion also for rib fractures/sternal fracture given benign nature of exam (patient has minimal tenderness to palpation) Plan of Care: Orders Procedure Date/time Status TROPONIN LEVEL 11/22 2301 Complete Add-on Test (ER Only) 11/22 2117 Active D-DIMER 11/23 2023 Complete PROTHROMBIN TIME 11/22 2016 Complete TROPONIN LEVEL 11/22 2012 Complete MAGNESIUM 11/22 2012 Complete COMPREHENSIVE METABOLIC PANEL 11/22 2012 Complete CBC WITHOUT DIFFERENTIAL 11/22 2012 Complete EKG 11/23 1999 Active Laboratory Tests 11/22/17 2310: Troponin I < 0.01 11/22/172115: D-Dimer High Sensitivty Cancelled 11/22/172023: Anion Gap 10, Estimated GFR > 60, BUN/Creatinine Ratio 12.5, Glucose 91, Calcium 9.2, Magnesium 2.1, Total Bilirubin 0.3, AST 17, ALT 30, Alkaline Phosphatase 90 , Troponin I < 0.01, Total Protein 7.6, Albumin 4.5, Globulin 3.1, Albumin/ Globulin Ratio 1.5, PT 25.0 H, INR 2.27 H, D-Dimer High Sensitivty < 200, CBC w Diff NO MAN DIFF REQ, RBC 5.36, MCV 92.8, MCH 31.6 H, MCHC 34.1, RDW 12.9, MPV 6.6 L, Gran % 64.4, Lymphocytes % 25.5, Monocytes % 8.1, Eosinophils % 1.6, Basophils % 0.4, Absolute Granulocytes 6.9 H, Absolute Lymphocytes 2.7, Absolute Monocytes 0.9 H, Absolute Eosinophils 0.2, Absolute Basophils 0 High-sensitivity d-dimer is negative, making an acute thromboembolic event highly unlikely. In addition, with normal vital signs and reassuring exam, the patient has negative troponin which would suggest that if he did have a small pulmonary embolism it would be less than submassive; for this, he is well treated with his Coumadin, which appears from lab findings to be within the therapeutic window. This is addressed with the patient and his father and through shared decision making and is decided to hold off on CTA PE study at this time. The fact the patient has had recurrent falls/seizure events while on Coumadin is alarming. This is discussed at length with the patient and his father. They agree that the patient will need to follow strict precautions while at home to avoid falling, striking his head. The idea of stopping the Coumadin is raised; patient and father state that they will follow-up closely with the primary doctor to address this possibility. EPIC records are checked; the patient's team , including neuologist Dr Cohen, is fully aware of the frequency and severity of his seizures; he is being planned for possible repeat neurosurgery for curative tx. Patient is very well appearing on reassessment w no change in exam. Chest pain remains mild, reproducible. He is d/c home w his father w strict return precautions and F/U instructions. Initial ED EKG: normal sinus rhythm, no ST T wave changes (Francisco Juan MD) Departure Departure Time of Disposition: 2354 Disposition: HOME OR SELF CARE Condition: Stable Clinical Impression Primary Impression: Chest wall pain Referrals: Lakhwinder Ibarra MD (PCP/Family) Departure Forms: Customer Survey General Discharge Information (Francisco Juan MD) PA/CERTIFIED PEDIATRIC NURSE PRACTITIONER Co-Sign Statement Statement: ED Attending supervision documentation- [] I saw and evaluated the patient. I have also reviewed all the pertinent lab results and diagnostic results. I agree with the findings and the plan of care as documented in the PA's/CERTIFIED PEDIATRIC NURSE PRACTITIONER's documentation. [x] I have reviewed the ED Record and agree with the PA's/CERTIFIED PEDIATRIC NURSE PRACTITIONER's documentation. [] Additions or exceptions (if any) to the PAs/CERTIFIED PEDIATRIC NURSE PRACTITIONER's note and plan are summarized below: [] (Juan C Motley DO) Critical Care Note Critical Care Note Critical Care Time: non-applicable (Francisco Juan MD)
[2017-11-22 23:54] VITALS: BP 118/56
== END 2017-11-23 ==
LOC: ERH 19:58
PROVIDERS: Physician Assistant
DX: R07.89 Other chest pain (principal); Z79.01 Long term (current) use of anticoagulants
CPT/HCPCS: 71046; 93005; 93010

== ENCOUNTER 2017-12-14 13:20 | Emergency (ER) | payer OTHER ==
[~2017-12-14] VITALS: Ht 175.3 cm; Wt 140.6 kg
--- NOTE | 2017-12-14 14:35 | CT SCAN REPORT ---
EXAMINATION: CT HEAD WITHOUT CONTRAST CLINICAL INFORMATION: Hit head on Coumadin. COMPARISON: CT scan of the head 11/17/2017. TECHNIQUE: Contiguous axial imaging was performed from the skull base to vertex without intravenous administration of contrast. DLP: 639.39 mGy-cm FINDINGS: There is no evidence of acute intracranial hemorrhage or territorial infarction. No abnormal mass effect or midline shift is seen. Hoover to white matter differentiation is well preserved. No extra-axial fluid collections are identified. The ventricles and sulci appear normal. The study redemonstrates areas of calcification in the bilateral frontoparietal regions, unchanged. Brain parenchymal attenuation is otherwise unremarkable. There is a new scalp laceration in the high vertex posteriorly with foci of air. There are no acute osseous findings. The visualized mastoid air cells are well-aerated. There is mucoperiosteal thickening in the bilateral ethmoid sinuses, increased compared to prior imaging. IMPRESSION: 1. There are no acute bleeds or territorial infarcts. No masses are demonstrated. 2. There is a new laceration in the high vertex posteriorly in the midline. 3. The study redemonstrates small calcifications in the bilateral frontal and parietal regions.
[2017-12-14 15:37] LABS: PT 21.3 SEC (9.4-12.5)
--- NOTE | 2017-12-14 15:46 | ED AMS/SEIZURE/WEAK/DIZZY ---
History of Present Illness General Chief Complaint: Fall Stated Complaint: FALL +HIT HEAD Source: patient, family, old records Exam Limitations: no limitations Vital Signs & Intake/Output Vital Signs & Intake/Output Vital Signs Date Time Temp Pulse Resp B/P B/P Pulse O2 O2 Flow FiO2 Mean Ox Delivery Rate 12/14 1706 98.2 77 18 111/55 100 12/14 1323 98.5 91 18 111/69 98 Room Air Allergies Coded Allergies: No Known Allergies (07/22/17) Reconcile Medications Carbamazepine 300 MG CPMP.12HR 2 CAP PO BID SEIZURES (Reported) Carbamazepine 200 MG CPMP.12HR 1 CAP PO QPM SEIZURES (Reported) Cholecalciferol (Vitamin D3) (Vitamin D3) 2,000 UNIT TABLET 1 TAB PO DAILY VITAMIN SUPPORT (Reported) Clobazam (ONFI) 10 MG TABLET 3 TAB PO BID SEIZURES (Reported) Enoxaparin Sodium (Lovenox) 100 MG/ML SYRINGE 140 MG SC BID BLOOD THINNER . Oxycodone HCl 5 MG TABLET 1 TAB PO BIDP PRN PAIN (Reported) Warfarin Sodium (Coumadin) 2.5 MG TABLET 3 TAB PO DAILY BLOOD THINNER .. Zonisamide (Zonegran) 100 MG CAPSULE 6 CAP PO QPM SEIZURES (Reported) Triage Note: 32 Y/O MALE C/O LACERATION TO POSTERIOR HEAD S/P SEIZURE THIS AM (HX EPILEPSY). PT STATES HE ALWAYS STRIKES SAME AREA IN BACK OF HEAD WHEN HE HAS SEIZURES. APPROX 4 CM LAC NOTED, BLEEDING CONTROLLED. FATHER STATES INR WAS "ABOUT 3" LAST WEEK. PT SPEAKING WITH CLEAR SENTENCES, NO DEFICITS NOTED. EVALD BY ANGELINA DIAZ IN TRIAGE Triage Nurses Notes Reviewed? yes Onset: Abrupt Duration: hour(s): Timing: single episode today Injury Environment: home Severity: moderate HPI: 32yo male with hx of seizures, DVT on coumadin presents to ED following a seizure at home prior to arrival. Patient states he was walking in his kitchen when he blacked out and woke up on the floor. Patient notes bleeding from scalp laceration which chronically opens up due to repeat falls. Patient is followed by neurology through [facility] and states he has frequent seizures. His father states that the patient is not supposed to be walking around the house without his assistance due to the frequency of his seizures however patient continues to try to ambulate independently. Patient currently feels at his baseline. HE denies headache, nausea, vomiting, burry vision. Tetanus status is up to date. (Katarzyna Caballero) Past History Travel History Traveled to [place] past 21 day No Medical History Any Pertinent Medical History? 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 No (Katarzyna Caballero) Review of Systems Review of Systems Constitutional: Reports: no symptoms. EENTM: Reports: no symptoms. Respiratory: Reports: no symptoms. Cardiovascular: Reports: no symptoms. GI: Reports: no symptoms. Genitourinary: Reports: no symptoms. Musculoskeletal: Reports: see HPI. Skin: Reports: see HPI. Neurological/Psychological: Reports: see HPI. Hematologic/Endocrine: Reports: no symptoms. Immunologic/Allergic: Reports: no symptoms. All Other Systems: Reviewed and Negative (Katarzyna Caballero) Physical Exam Physical Exam General Appearance: well developed/nourished, no apparent distress, alert, awake Head: 4cm linear laceration to posterior parietal scalp Eyes: Bilateral: normal appearance, PERRL, EOMI. Ears, Nose, Throat: normal pharynx, normal ENT inspection, hearing grossly normal Neck: normal inspection, supple, full range of motion, no midline tenderness Respiratory: normal breath sounds, no respiratory distress, lungs clear Cardiovascular: regular rate/rhythm Gastrointestinal: soft, non-tender Back: normal inspection, normal range of motion, no vertebral tenderness Extremities: normal range of motion Neurologic/Psych: no motor/sensory deficits, awake, alert, oriented x 3, CN II- XII intact Skin: scalp laceration Core Measures ACS in differential dx? No CVA/TIA Diagnosis No Sepsis Present: No Sepsis Focused Exam Completed? No (Katarzyna Caballero) Progress Differential Diagnosis: CVA/stroke, intracranial Hem., intracranial mass/tumor, seizure disorder, scalp laceration Plan of Care: Orders Procedure Date/time Status PROTHROMBIN TIME 12/14 1324 Complete Laboratory Tests 12/14/17 1456: PT 21.3 H, INR 1.[address] scan is stable. INR is slightly suboptimal for the patients DVT. Patients scalp laceration close with yi. Father is requesting information about group homes that the patient could stay at. group fitness manager, Annika, discussed skilled nursing logistics with the patient and his father. Patient ready for discharge at this time. Patient has history of frequent seizures and had repeat seizure today with fall and scalp laceration, no ICH on CT scan. He will follow up with his [facility] neurology team. Patient and father agree with the plan of care. Diagnostic Imaging: Viewed by Me: CT Scan. Discussed w/RAD: CT Scan. Radiology Impression: PATIENT: LIZETH SALINAS PRESENT AGE: 32 PATIENT ACCOUNT NO: [id number] : 86 LOCATION: [facility] ORDERING PHYSICIAN: Darwin ALFARO SERVICE DATE: 12/14/17 EXAM TYPE: CAT - CT HEAD WO IV CONTRAST EXAMINATION: CT HEAD WITHOUT CONTRAST CLINICAL INFORMATION: Hit head on Coumadin. COMPARISON: CT scan of the head 11/17/2017. TECHNIQUE: Contiguous axial imaging was performed from the skull base to vertex without intravenous administration of contrast. DLP: 639.39 mGy-cm FINDINGS: There is no evidence of acute intracranial hemorrhage or territorial infarction. No abnormal mass effect or midline shift is seen. Hoover to white matter differentiation is well preserved. No extra-axial fluid collections are identified. The ventricles and sulci appear normal. The study redemonstrates areas of calcification in the bilateral frontoparietal regions, unchanged. Brain parenchymal attenuation is otherwise unremarkable. There is a new scalp laceration in the high vertex posteriorly with foci of air. There are no acute osseous findings. The visualized mastoid air cells are well-aerated. There is mucoperiosteal thickening in the bilateral ethmoid sinuses, increased compared to prior imaging. IMPRESSION: 1. There are no acute bleeds or territorial infarcts. No masses are demonstrated. 2. There is a new laceration in the high vertex posteriorly in the midline. 3. The study redemonstrates small calcifications in the bilateral frontal and parietal regions. DICTATED BY: Clint Rosario MD DATE/TIME DICTATED:12/14/171420 STAFF FIELD ENGINEER:HAYDEN DATE/ TIME TRANSCRIBED:12/14/171420 CONFIDENTIAL, DO NOT COPY WITHOUT APPROPRIATE AUTHORIZATION. <Electronically signed in Other Vendor System> SIGNED BY: Clint Rosario MD 12/14/17 1435 Initial ED EKG: none (Katarzyna Caballero) Departure Departure Disposition: HOME OR SELF CARE Condition: Stable Clinical Impression Primary Impression: Seizure Secondary Impressions: Scalp laceration Qualifiers: Encounter type: initial encounter Qualified Code: S01.01XA - Laceration without foreign body of scalp, initial encounter Referrals: Lakhwinder Ibarra MD (PCP/Family) Additional Instructions: Return in 7 days for removal of yi. You may apply bacitracin over wound for the next three days. Keep area clean and dry. Return sooner with any worsening symptoms or concerns including severe headache, confusion, visual changes, redness surrounding wound. Please note that there might be incidental findings in your evaluation that are unrelated to the current emergency department visit. Please notify your primary care doctor about this emergency department visit in order to obtain and review all of the testing performed so that these incidental findings can be monitored as needed. If you had an x-ray performed, please understand that some fractures may not be seen on the initial set of x-rays. If your symptoms persist you might need a repeat set of x-rays to check for such a fracture. If you had a laceration evaluated, please understand that foreign bodies such as glass or wood may not be visible to the naked eye or on plain x-rays. If the wound becomes red, swollen, increasingly more painful or if there is any drainage from the wound, please have it reevaluated by a physician for the possibility of a retained foreign body. If you're unable to follow up as outlined in the discharge instructions please return to the emergency department. Thank you for choosing the [facility] Emergency Department for your care. It was a pleasure to serve you today. Departure Forms: Customer Survey General Discharge Information (Katarzyna Caballero) PA/ACCOUNTS ADMINISTRATOR Co-Sign Statement Statement: ED Attending supervision documentation- I saw and evaluated the patient. I have also reviewed all the pertinent lab results and diagnostic results. I agree with the findings and the plan of care as documented in the PA's/ACCOUNTS ADMINISTRATOR's documentation. x I have reviewed the ED Record and agree with the PA's/ACCOUNTS ADMINISTRATOR's documentation. [] Additions or exceptions (if any) to the PAs/ACCOUNTS ADMINISTRATOR's note and plan are summarized below: [] (Gurvinder TAVAREZ,Randy) Procedures Laceration/Wound Repair Laceration/Wound Repair: Wound Location: head Wound's Depth, Shape: linear Wound Length (cm): 4 Wound Explored: clean Betadine Prep? Yes Anesthesia: 1% lidocaine Volume Anesthetic (ccs): 3 Suture Size/Type: yi Number of Sutures: 5 Tetanus Status: up to date Progress: Patient tolerated procedure well. (Diana ALFARO,Katarzyna Gomez)
[2017-12-14 18:38] VITALS: BP 110/77
== END 2017-12-14 18:39 ==
LOC: ERH 13:20
PROVIDERS: Physician Assistant Medical
DX: S01.01XA Laceration without foreign body of scalp, initial encounter (principal); R56.9 Unspecified convulsions; Z87.891 Personal history of nicotine dependence; Z79.01 Long term (current) use of anticoagulants; W19.XXXA Unspecified fall, initial encounter; Y93.01 Activity, walking, marching and hiking; Y92.009 Unspecified place in unspecified non-institutional (private) residence as the place of occurrence of the external cause
CPT/HCPCS: J2001

== ENCOUNTER 2017-12-25 14:51 | Emergency (ER) | payer OTHER ==
[~2017-12-25] VITALS: Ht 175.3 cm; Wt 140.6 kg
--- NOTE | 2017-12-25 17:11 | ED GENERAL ADULT ---
History of Present Illness General Chief Complaint: Fall Stated Complaint: RECENT FALLS Source: patient Exam Limitations: no limitations Vital Signs & Intake/Output Vital Signs & Intake/Output Vital Signs Date Time Temp Pulse Resp B/P B/P Pulse O2 O2 Flow FiO2 Mean Ox Delivery Rate 12/25 1746 98.0 78 20 113/55 98 Room Air 12/25 1459 98.3 82 20 111/64 98 Room Air Allergies Coded Allergies: No Known Allergies (07/22/17) Reconcile Medications Carbamazepine 300 MG CPMP.12HR 2 CAP PO BID SEIZURES (Reported) Carbamazepine 200 MG CPMP.12HR 1 CAP PO QPM SEIZURES (Reported) Cholecalciferol (Vitamin D3) (Vitamin D3) 2,000 UNIT TABLET 1 TAB PO DAILY VITAMIN SUPPORT (Reported) Clobazam (ONFI) 10 MG TABLET 3 TAB PO BID SEIZURES (Reported) Enoxaparin Sodium (Lovenox) 100 MG/ML SYRINGE 140 MG SC BID BLOOD THINNER . Oxycodone HCl 5 MG TABLET 1 TAB PO BIDP PRN PAIN (Reported) Warfarin Sodium (Coumadin) 2.5 MG TABLET 3 TAB PO DAILY BLOOD THINNER .. Zonisamide (Zonegran) 100 MG CAPSULE 6 CAP PO QPM SEIZURES (Reported) Triage Note: PT TO ED FOR LAC THAT RE-OPENED TO BACK OF HEAD. S/P FALLING IN THE BATHROOM TODAY. INITAL LAC WAS 12/14, PT SEEN HERE AND YI WERE PLACED. DENIES LOC. PT IS ON COUMADIN FOR H/O DVT. Triage Nurses Notes Reviewed? yes Onset: Abrupt Duration: hour(s): Timing: single episode today HPI: 32-year-old male with a history of epilepsy (on zonegran, onfi, and carbatrol), DVT (on coumadin), and asthma presenting with scalp laceration status post seizure this morning. Patient reports that he got up to use the bathroom and had a GTC seizure with a head strike on the floor. He states that his epilepsy has been very difficult to control, and average can have up to 3 or 4 seizures per day. He was recently seen and evaluated in the emergency department 11 days ago for a seizure during which time he had a scalp laceration that required a stable. He subsequently followed up for staple removal. States that today during his seizure the healing wound opened back up. Right now he currently feels back to his baseline. Denies any recent fevers or infectious symptoms. Reports medication compliance with all of his antiepileptics. Is currently followed by a neurologist at [facility]. Denies drugs or EtOH use. Tetanus updated approximately 1 year ago. Past History Travel History Traveled to [place] past 21 day No Medical History Any Pertinent Medical History? 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 No Review of Systems Review of Systems Constitutional: Reports: no symptoms. EENTM: Reports: no symptoms. Respiratory: Reports: no symptoms. Cardiovascular: Reports: no symptoms. GI: Reports: no symptoms. Genitourinary: Reports: no symptoms. Musculoskeletal: Reports: no symptoms. Skin: Reports: see HPI. Neurological/Psychological: Reports: see HPI. Hematologic/Endocrine: Reports: no symptoms. Immunologic/Allergic: Reports: no symptoms. All Other Systems: Reviewed and Negative Physical Exam Physical Exam General Appearance: well developed/nourished, no apparent distress, alert, awake Comments: Gen.: Well-nourished, well-developed, no acute distress. Head: Normocephalic, approximately 1-2 cm scalp laceration to the posterior scalp with good hemostasis Eyes: Normal inspection bilaterally, pupils equally round and reactive bilaterally, EOMs intact Ears: Normal inspection bilaterally, no hemotympanum Nose: Normal inspection Neck: Normal inspection, no midline tenderness to palpation, unrestricted C- spine range of motion Lungs: clear to auscultation bilaterally, normnal breath sounds, no chest wall tenderness to palpation Heart: regular rate and rhythm Abdomen: soft and non-tender Extremities: Normal inspection, unrestricted range of motion in all extremities Neurologic: alert and oriented x3, cranial nerves II through XII intact, sensation intact, motor strength 5 out of 5, reflexes 2+, cerebellar function intact Back: Normal inspection, no T-spine or L-spine tenderness to palpation, unrestricted spinal range of motion Skin: warm and dry Psychiatric: Normal mood and affect, no apparent delusions or hallucinations, behavior appropriate Core Measures ACS in differential dx? No CVA/TIA Diagnosis: No Sepsis Present: No Sepsis Focused Exam Completed? No Progress Differential Diagnoses I considered the following diagnoses in my evaluation of the patient: [Seizure versus scalp laceration versus ICH, will concern for vertebral fracture versus infection versus metabolic derangement] Plan of Care: Orders Procedure Date/time Status EKG 12/25 1716 Active CARBAMAZEPINE 12/25 1709 Complete PROTHROMBIN TIME 12/26 1707 Complete PHOSPHORUS 12/26 1707 Complete MAGNESIUM 12/26 1707 Complete COMPREHENSIVE METABOLIC PANEL 12/26 1707 Complete CBC WITHOUT DIFFERENTIAL 12/26 1707 Complete Laboratory Tests 12/25/17 1734: Anion Gap 11, Estimated GFR > 60, BUN/Creatinine Ratio 11.3, Glucose 84, Calcium 8.9, Phosphorus 4.1, Magnesium 2.1, Total Bilirubin 0.2, AST 18, ALT 26, Alkaline Phosphatase 83, Total Protein 7.4, Albumin 4.5, Globulin 2.9, Albumin/ Globulin Ratio 1.6, PT 28.5 H, INR 2.59 H, CBC w Diff NO MAN DIFF REQ, RBC 5.07, MCV 94.3 H, MCH 31.8 H, MCHC 33.7, RDW 12.6, MPV 7.1 L, Gran % 65.9, Lymphocytes % 24.4, Monocytes % 8.0, Eosinophils % 1.5, Basophils % 0.2, Absolute Granulocytes 7.0 H, Absolute Lymphocytes 2.6, Absolute Monocytes 0.8 H, Absolute Eosinophils 0.2, Absolute Basophils 0, Carbamazepine 10.6 Labs unremarkable, Coumadin is therapeutic, Carbatrol is therapeutic. CT head showed no acute injury. No indication for CT C-spine based on Nexus criteria. Scalp laceration repaired according to the procedure note. Likely with breakthrough seizure secondary to his epilepsy. Counseled on wound care and strict return precautions. Will follow up with his neurologist for reevaluation. Will return in 5 days for staple removal. Initial ED EKG: normal sinus rhythm, no ST T wave changes Departure Departure Disposition: HOME OR SELF CARE Condition: Stable Clinical Impression Primary Impression: Seizure Secondary Impressions: Scalp laceration Referrals: Fred TAVAREZ,Lakhwinder Tafoya (PCP/Family) Additional Instructions: Follow-up in 5 days for staple removal. Keep the wound clean and dry. Continue taking her antiepileptic medications as prescribed. Follow-up with your neurologist for further evaluation. Return to the emergency department for any new or worsening symptoms. Departure Forms: Customer Survey General Discharge Information Procedures Laceration/Wound Repair Laceration/Wound Repair: Wound Location: head Wound's Depth, Shape: linear Wound Length (cm): 1 Wound Explored: clean, no foreign body removed Irrigated w/ Saline (ccs): 120 Betadine Prep? Yes Wound Repaired With: staple Suture Size/Type: yi Number of Sutures: 1 Tetanus Status: up to date Critical Care Note Critical Care Note Critical Care Time: non-applicable
[2017-12-25 17:46] VITALS: BP 113/55
--- NOTE | 2017-12-25 17:49 | CT SCAN REPORT ---
EXAMINATION: CT HEAD WITHOUT CONTRAST CLINICAL INFORMATION: Head strike. Seizure. Patient on Coumadin. COMPARISON: Head CT dated 12/14/2017. TECHNIQUE: Contiguous axial imaging was performed from the skull base to vertex without intravenous administration of contrast. DLP: 695 mGy-cm FINDINGS: There is no evidence of acute intracranial hemorrhage or territorial infarction. No abnormal mass effect or midline shift is seen. Hoover to white matter differentiation is well preserved. No extra-axial fluid collections are identified. Small dystrophic calcification noted in the cortical hoover matter of the right parietal lobe. The ventricles are normal in size. There is no abnormal attenuation within the brain parenchyma. There is midline high parietal scalp soft tissue swelling and trace subcutaneous emphysema from presumed laceration injury. The osseous structures are normal. The mastoid air cells and visualized portions of the paranasal sinuses are well aerated. IMPRESSION: No acute intracranial pathology. Posterior midline parietal scalp soft tissue swelling and mild subcutaneous emphysema, also present on prior imaging from 12/14/2017.
[2017-12-25 18:00] LABS: ABSOLUTE BASOPHIL COUNT 0 /CUMM (0.0-0.2); ABSOLUTE EOSINOPHIL COUNT 0.2 /CUMM (0.0-0.7); ABSOLUTE LYMPH COUNT 2.6 /CUMM (1.2-3.4); ABSOLUTE MONOCYTE COUNT 0.8 /CUMM (0.10-0.60); BASOPHIL % 0.2 % (0.0-2.0); EOSINOPHIL % 1.5 % (0-5); GRANULOCYTE % 65.9 % (42.2-75.2); HEMATOCRIT 47.8 % (42-52); MEAN CORPUSCULAR HGB 31.8 PG (27.0-31.0); MEAN CORPUSCULAR HGB CONC 33.7 G/DL (33.0-37.0); MEAN CORPUSCULAR VOLUME 94.3 FL (80.0-94.0); MEAN PLATELET VOLUME 7.1 FL (7.4-10.4); PLATELET COUNT 314 /CUMM (130-400); RBC DISTRIBUTION WIDTH 12.6 % (11.5-14.5); RED BLOOD CELL CT 5.07 /CUMM (4.70-6.10); WHITE BLOOD CELL COUNT 10.6 /CUMM (4.8-10.8)
[2017-12-25 18:11] LABS: PT 28.5 SEC (9.4-12.5)
== END 2017-12-25 19:20 ==
LOC: ERH 14:51
PROVIDERS: Physician Assistant
DX: R56.9 Unspecified convulsions (principal); S01.01XA Laceration without foreign body of scalp, initial encounter; Z79.01 Long term (current) use of anticoagulants; W19.XXXA Unspecified fall, initial encounter; Y92.002 Bathroom of unspecified non-institutional (private) residence as the place of occurrence of the external cause; Y93.9 Activity, unspecified; J45.909 Unspecified asthma, uncomplicated
CPT/HCPCS: 93005; 93010